=== PATIENT | female | born 1940 | race Caucasian/White ===

== ENCOUNTER 2016-04-19 16:43 | Emergency (ER) | payer MEDICARE, BC ==
[~2016-04-19] VITALS: Ht 165.1 cm; Wt 59.9 kg
[~2016-04-19 16:43] MED LIST: ACET-789 PO; ALBU8.5H2 IH; ALLEVE; ALN70T; ARIP2TAB10 PO; ASP81CT PO; ASPI-587 PO; C250T; CALC-879 PO; CALC250T2 PO; CITA20TA4 PO; CITRACAL; E400C; ESCT10T; FISH OIL 1,2001 EAC1; FOLI0.8T PO; GLIP10TA13 PO; LIRA0.6P SQ; MULT-608 PO; MULT1TAB63; OMEG1CAP51 PO; OMG1KC; OXYB10TA PO; RPGL2T; TOLT2CAP; VITAMIN C
[2016-04-19] MEDS ORDERED: MECLIZINE 25 MG (ANTIVERT) TAB PO ONE (17:30)
[2016-04-19 17:43] LABS: BILIRUBIN,URINE NEGATIVE (NEGATIVE); KETONES,URINE NEGATIVE (NEGATIVE); LEUKOCYTE ESTERASE ,URINE 1+ (NEGATIVE); NITRITE,URINE NEGATIVE (NEGATIVE); PH,URINE 8 (5-9); PROTEIN,URINE 2+ (NEGATIVE); UROBILINOGEN,URINE NORMAL (NORMAL)
[2016-04-19 17:45] LABS: BASOPHILS % (AUTO) 1 % (0-10); EOSINOPHILS # (AUTO) 0.1 10^3/uL (0.0-0.3); EOSINOPHILS % (AUTO) 2 % (0-10); LYMPHOCYTES # (AUTO) 2.3 X 10^3 (1.0-4.0); LYMPHOCYTES % (AUTO) 29 % (12-44); MEAN CORPUSCULAR HEMOGLOBIN 32 PG (25-34); MEAN CORPUSCULAR HGB CONC 35 G/DL (32-36); MEAN CORPUSCULAR VOLUME 93 FL (80-99); MEAN PLATELET VOLUME 10.7 FL (7.4-10.4); MONOCYTES # (AUTO) 0.7 X 10^3 (0.0-1.0); MONOCYTES % (AUTO) 9 % (0-12); NEUTROPHILS # (AUTO) 4.9 X 10^3 (1.8-7.8); NEUTROPHILS % (AUTO) 61 % (42-75); PLATELET COUNT 285 10^3/uL (130-400); RED BLOOD COUNT 3.85 10^6/uL (4.35-5.85); RED CELL DISTRIBUTION WIDTH 12.6 % (10.0-14.5); WHITE BLOOD COUNT 8.1 10^3/uL (4.3-11.0)
[2016-04-19 17:53] LABS: WBC,URINE 0-2 /HPF
[2016-04-19 18:00] LABS: ALBUMIN 4.2 G/DL (3.2-4.5); BILIRUBIN,TOTAL 0.3 MG/DL (0.1-1.0); CREATININE SERUM 1.15 MG/DL (0.60-1.30); TOTAL PROTEIN 6.6 G/DL (6.4-8.2)
[2016-04-19] MEDS ORDERED: NS IV 1000 ML 1,000 ML IV SCH (18:00)
--- NOTE | 2016-04-19 18:03 | ED General ---
General Chief Complaint: Dizziness/Syncope Stated Complaint: DIZZINESS/VOMITING Nursing Triage Note: PT REPORTS DIZZINESS WHEN SHE AWAKENED THIS AM ACCOMPANIED BY 3 EPISODES OF VOMITING. SHE STATES DIZZINESS IS WORSE WITH MOVEMENT. Nursing Sepsis Screen: No Definite Risk Source of Information: Patient Exam Limitations: No Limitations History of Present Illness Time Seen by Provider: 17:59 Initial Comments The patient is a 75-year-old white female who reports that on arising this morning she noted considerable dizziness which she describes as a spinning sensation. This seemed to be minimum if she held her head in midline and straight forward. Turning the head aggravated this. There was enough difficulty that she has vomited 3 times today. She reports that she is attempted to keep her fluid intake.. There has been no fever or chills. There is no previous history of vertigo. She does not report tinnitus. She has had multiple problems with vascular disease in the past. Timing/Duration: 12 Hours Allergies and Home Medications Allergies Coded Allergies: Sulfa (Sulfonamide Antibiotics) (Unverified Allergy, Unknown, FEET AND ANKLE SWELLING, 09/13/14) linagliptin (Unverified Allergy, Unknown, RASH, 09/13/14) metformin (Unverified Allergy, Unknown, 09/13/14) saxagliptin (Unverified Allergy, Unknown, FEET AND ANKLE SWELLED, 09/13/14) Home Medications Acetaminophen with Codeine 1 Each Tablet #20 1 EACH PO Q4H PRN PRN PAIN Prescribed by: JANETTE LACY on 11/06/14 0845 Aripiprazole 2 Mg Tablet 1 MG PO DAILY (Reported) TAKE 1/2 OF (2MG) TAB Aspirin 81 Mg Tablet.dr 81 MG PO DAILY (Reported) Calcium Cit/Mag/D3/Zn/Medical Office Technologist/Jarrell 1 Each Tablet 630 MG PO DAILY (Reported) Citalopram Hydrobromide 20 Mg Tablet 20 MG PO DAILY (Reported) Folic Acid 0.8 Mg Tablet 0.8 MG PO DAILY (Reported) Glipizide 10 Mg Tablet 10 MG PO BID (Reported) Liraglutide 0.6 Mg/0.1 Ml Pen.injctr 0.6 MG SQ DAILY (Reported) Multivitamins 1 Tab Tablet 1 TAB PO DAILY (Reported) [place]-3 Fatty Acids/Fish Oil 1 Each Capsule 2,000 MG PO BID (Reported) TAKE 2 (1000MG) TABS Oxybutynin Chloride 10 Mg Tab.osm.24 10 MG PO DAILY (Reported) Constitutional: see HPI EENTM: no symptoms reported see HPI Respiratory: no symptoms reported Cardiovascular: no symptoms reported Gastrointestinal: no symptoms reported Genitourinary: no symptoms reported Musculoskeletal: no symptoms reported Skin: no symptoms reported Psychiatric/Neurological: No Symptoms Reported Hematologic/Lymphatic: No Symptoms Reported Immunological/Allergic: no symptoms reported Past Ksqyxtm-Adnuoe-Gejlci Hx Patient Social History Alcohol Use: Denies Use Recreational Drug Use: No Smoking Status: Current Everyday Smoker Type Used: Cigarettes, Electronic/Vapor Recent Foreign Travel: No Contact w/Someone Who Travel: No Recent Infectious Disease Expo: No Recent Hopitalizations: No Physical Abuse Screen: No Sexual Abuse: No Immunizations Up To Date Date of Pneumonia Vaccine: Mar 23, 2006 Surgeries HX Surgeries: Yes (STENT IN BLADDER AND REMOVED, R CAROTID ENDARTERECTOMY, TRIGGER FINGER X3, ) Respiratory Hx Respiratory Disorders: Yes Respiratory Disorders: COPD Cardiovascular Hx Cardiac Disorders: No Neurological Hx Neurological Disorders: No Reproductive System Hx Reproductive Disorders: No Sexually Transmitted Disease: No Genitourinary Hx 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) Gastrointestinal Hx Gastrointestinal Disorders: No Musculoskeletal Hx Musculoskeletal Disorders: Yes (HIPS,KNEES AND LOWER BACK GIVES TROUBLE) Musculoskeletal Disorders: Arthritis Endocrine Hx Endocrine Disorders: Yes Endocrine Disorders: Diabetes, Non-Insulin dep HEENT HX ENT Disorders: Yes Loss of Vision: Bilateral Hearing Impairment: Hard of Hearing Cancer Hx Cancer: No Psychosocial Hx Psychiatric Problems: Yes Behavioral Health Disorders: Depression Integumentary HX Skin/Integumentary Disorder: No Blood Transfusions Hx Blood Disorders: No Physical Exam Vital Signs Vital Sign - Last 12Hours 04/19/16 17:25 Temp 97.1 Pulse 71 Resp 16 B/P 163/79 Pulse Ox 97 O2 Delivery Room Air Capillary Refill : Less Than 3 Seconds General Appearance: Mild Distress Eyes: Bilateral Eye Normal Inspection HEENT: Normal ENT Inspection Neck: Full Range of Motion Normal Inspection Non Tender Supple Carotid Bruit Cardiovascular: Regular Rate, Rhythm No Edema No Gallop No JVD No Murmur Normal Peripheral Pulses Gastrointestinal: Normal Bowel Sounds No Organomegaly No Pulsatile Mass Non Tender Soft Back: Normal Inspection No CVA Tenderness No Vertebral Tenderness Extremity: Normal Capillary Refill Normal Inspection Normal Range of Motion Non Tender No Calf Tenderness No Pedal Edema Neurologic/Psychiatric: Alert Oriented x3 No Motor/Sensory Deficits Normal Mood/Affect Skin: Normal Color Warm/Dry Lymphatic: No Adenopathy Progress/Results/Core Measures Results/Orders Lab Results Laboratory Tests Test 04/19/16 17:33 Range/Units Alanine Aminotransferase (ALT/SGPT) 51 0-55 U/L Albumin 4.2 3.2-4.5 G/DL Alkaline Phosphatase 79 40-136 U/L Anion Gap 11 5-14 MMOL/L Aspartate Amino Transf (AST/SGOT) 31 5-34 U/L BUN/Creatinine Ratio 15 Basophils # (Auto) 0.0 0.0-0.1 10^3/uL Basophils (%) (Auto) 1 0-10 % Blood Urea Nitrogen 17 7-18 MG/DL Calcium Level 10.0 8.5-10.1 MG/DL Carbon Dioxide Level 25 21-32 MMOL/L Chloride Level 105 98-107 MMOL/L Creatinine 1.15 0.60-1.30 MG/DL Eosinophils # (Auto) 0.1 0.0-0.3 10^3/uL Eosinophils (%) (Auto) 2 0-10 % Estimat Glomerular Filtration Rate 46 Glucose Level 203 H 70-105 MG/DL Hematocrit 36 35-52 % Hemoglobin 12.3 11.5-16.0 G/DL Lymphocytes # (Auto) 2.3 1.0-4.0 X 10^3 Lymphocytes (%) (Auto) 29 12-44 % Mean Corpuscular Hemoglobin 32 25-34 PG Mean Corpuscular Hemoglobin Concent 35 32-36 G/DL Mean Corpuscular Volume 93 80-99 FL Mean Platelet Volume 10.7 H 7.4-10.4 FL Monocytes # (Auto) 0.7 0.0-1.0 X 10^3 Monocytes (%) (Auto) 9 0-12 % Neutrophils # (Auto) 4.9 1.8-7.8 X 10^3 Neutrophils (%) (Auto) 61 42-75 % Platelet Count 285 130-400 10^3/uL Potassium Level 4.0 3.6-5.0 MMOL/L Red Blood Count 3.85 L 4.35-5.85 10^6/uL Red Cell Distribution Width 12.6 10.0-14.5 % Sodium Level 141 135-145 MMOL/L Total Bilirubin 0.3 0.1-1.0 MG/DL Total Protein 6.6 6.4-8.2 G/DL Urine Bacteria TRACE /HPF Urine Bilirubin NEGATIVE NEGATIVE Urine Casts NONE /LPF Urine Clarity CLEAR Urine Color YELLOW Urine Crystals NONE /LPF Urine Culture Indicated NO Urine Glucose (UA) 3+ H NEGATIVE Urine Ketones NEGATIVE NEGATIVE Urine Leukocyte Esterase 1+ H NEGATIVE Urine Mucus NEGATIVE /LPF Urine Nitrite NEGATIVE NEGATIVE Urine Protein 2+ H NEGATIVE Urine RBC NONE /HPF Urine RBC (Auto) NEGATIVE NEGATIVE Urine Specific [place] 1.015 L 1.016-1.022 Urine Squamous Epithelial Cells 5-10 /HPF Urine Urobilinogen NORMAL NORMAL MG/DL Urine WBC 0-2 /HPF Urine pH 8 5-9 White Blood Count 8.1 4.3-11.0 10^3/uL My Orders Orders-PRESTON DELEON MD Cbc With Automated Diff (04/19/16 17:23) Comprehensive Metabolic Panel (04/19/16 17:23) Ua Culture If Indicated (04/19/16 17:23) Meclizine Tablet (Antivert Tablet) (04/19/16 17:30) Ns Iv 1000 Ml (Sodium Chloride 0.9%) (04/19/16 18:00) Medications Given in ED Current Medications Medications Dose Ordered Sig/Leeroy Route Start Time Stop Time Status Last Admin Dose Admin Meclizine HCl 25 mg ONCE ONCE PO 04/19/16 17:30 04/19/16 17:31 DC 04/19/16 17:39 25 MG Vital Signs/I&O Vital Sign - Last 12Hours 04/19/16 17:25 Temp 97.1 Pulse 71 Resp 16 B/P 163/79 Pulse Ox 97 O2 Delivery Room Air Blood Pressure Mean: 107 Departure Impression Impression: Primary Impression: vertigo Disposition: 01 HOME, SELF-CARE Condition: Stable/Unchanged Departure-Patient Inst. Referrals: MARIVEL DANGELO MD (PCP/Family) Primary Care Physician Patient Instructions: Vertigo (a Type of Dizziness) (DC) Add. Discharge Instructions: All discharge instructions reviewed with patient and/or family. Voiced understanding. Take meclizine 4 times daily. Lots of liquids Try to avoid sudden or sharp changes in head position Scripts Meclizine HCl 25 Mg [id number] Mg PO 4 times a day #30 TAB Prov:PRESTON DELEON MD 04/19/16 PRESTON DELEON MD Apr 19, 2016 18:03
[2016-04-19] MEDS ORDERED: MECL-106 PO (18:17)
[2016-04-19 18:50] VITALS: BP 163/79
[2016-04-19] MEDS ORDERED: SCOPOLAMINE 1.5 MG (TRANSDERM-SCOP) PATCH TD ONE (19:00)
== END 2016-04-19 18:50 | disposition home or self-care (01) ==
LOC: EDUNIT# 16:43 → ER 16:45
DX: R42 Dizziness and giddiness (principal); R11.10 Vomiting, unspecified; E11.9 Type 2 diabetes mellitus without complications; J44.9 Chronic obstructive pulmonary disease, unspecified; F17.210 Nicotine dependence, cigarettes, uncomplicated; Z79.82 Long term (current) use of aspirin; Z79.84 Long term (current) use of oral hypoglycemic drugs; Z79.899 Other long term (current) drug therapy
CPT/HCPCS: 36415; 80053; 81000; 85025; 96360

== ENCOUNTER → 2017-05-13 | Outpatient (CLI) | payer MEDICARE, BC ==
[~2017-05-13] MED LIST changes: +MECL-106 PO
--- NOTE | 2017-05-13 14:12 | Diagnostic Imaging Report ---
INDICATION: Preoperative evaluation. History of peripheral vascular disease. COMPARISON: CT chest dated 05/19/2008. FINDINGS: Frontal and lateral radiographic views of the chest were obtained and show normal cardiac silhouette and pulmonary vasculature. There is calcified aortic atherosclerosis. There is bilateral pleural apical thickening. There is a more prominent nodular opacity within the lateral right apex measuring approximately 8 mm. There is no focal consolidation, large effusion, or pneumothorax. Indwelling thoracic spine neurostimulator is noted. Bony structures show no gross acute abnormalities. IMPRESSION: 1. No evidence of failure or focal infiltrate. 2. Biapical pleural thickening with more focal nodular opacity on the right. An underlying pulmonary nodule cannot be excluded. Correlation with CT chest is recommended. Dictated by: Dictated on workstation # [id number]
[2017-05-13 14:25] LABS: HEMOGLOBIN 13.1 G/DL (11.5-16.0); MEAN PLATELET VOLUME 10.5 FL (7.4-10.4); RED BLOOD COUNT 4.07 10^6/uL (4.35-5.85); RED CELL DISTRIBUTION WIDTH 13.2 % (10.0-14.5); WHITE BLOOD COUNT 9.4 10^3/uL (4.3-11.0)
[2017-05-13 14:31] LABS: BILIRUBIN,URINE NEGATIVE (NEGATIVE); CLARITY,URINE CLEAR; COLOR,URINE YELLOW; GLUCOSE, URINE (UA) NEGATIVE (NEGATIVE); KETONES,URINE NEGATIVE (NEGATIVE); LEUKOCYTE ESTERASE ,URINE 1+ (NEGATIVE); NITRITE,URINE NEGATIVE (NEGATIVE); PH,URINE 7 (5-9); PROTEIN,URINE 2+ (NEGATIVE); UROBILINOGEN,URINE NORMAL (NORMAL)
[2017-05-13 14:39] LABS: BACTERIA,URINE FEW /HPF; SQUAMOUS EPITHELIAL CELL,UR 25-50 /HPF
[2017-05-13 14:41] LABS: ALBUMIN 4.3 GM/DL (3.2-4.5); BILIRUBIN,TOTAL 0.4 MG/DL (0.1-1.0); CALCIUM 10.4 MG/DL (8.5-10.1); CREATININE SERUM 1.05 MG/DL (0.60-1.30); POTASSIUM 3.9 MMOL/L (3.6-5.0); TOTAL PROTEIN 7.3 GM/DL (6.4-8.2)
== END ==
LOC: CARD 13:34
PROVIDERS: ATTEND Thoracic Surgery (Cardiothoracic Vascular Surgery)
DX: Z01.810 Encounter for preprocedural cardiovascular examination (principal); Z01.811 Encounter for preprocedural respiratory examination; Z01.812 Encounter for preprocedural laboratory examination; I70.211 Atherosclerosis of native arteries of extremities with intermittent claudication, right leg; R82.99 Other abnormal findings in urine
CPT/HCPCS: 36415; 71046; 80053; 81000; 85027; 87088; 93005

== ENCOUNTER → 2017-05-20 | Outpatient (CLI) | payer MEDICARE, BC ==
--- NOTE | 2017-05-20 13:01 | Diagnostic Imaging Report ---
PROCEDURE: CT chest without contrast. TECHNIQUE: Multiple contiguous axial images were obtained through the chest without the use of intravenous contrast. INDICATION: Abnormal chest x-ray. Pulmonary nodule. FINDINGS: There is bilateral apical scarring. No mass is evident. The remainder of the lungs are clear. There is no effusion or pneumothorax. There is no mediastinal mass or adenopathy. There is scoliosis with no acute bony abnormality. There is cholelithiasis. IMPRESSION: 1. There is bilateral apical scarring with no suspicious mass evident. 2. There is cholelithiasis. Dictated by: Dictated on workstation # [id number]
== END ==
LOC: RAD 12:30
PROVIDERS: ATTEND Nurse Practitioner
DX: J98.4 Other disorders of lung (principal); K80.20 Calculus of gallbladder without cholecystitis without obstruction
CPT/HCPCS: 71250

== ENCOUNTER → 2017-06-03 | Outpatient (CLI) | payer MEDICARE, BC ==
[~2017-06-03] VITALS: Ht 165.1 cm; Wt 54.4 kg
[~2017-06-03] MED LIST changes: +CATHETER FLUSH 10 ML SYR IV PRN; +REGADENOSON 0.4 MG/5 ML SYR (LEXISCAN) IV ONE
[2017-06-03 10:19] VITALS: BP 104/41
--- NOTE | 2017-06-03 17:43 | STRESS TEST ---
DATE OF SERVICE: LEXISCAN MYOVIEW STRESS TEST REPORT REFERRING PHYSICIANS: 1. George Martin MD. 2. Tommie Wilson MD. DESCRIPTION OF PROCEDURE: Baseline heart rate is 62. Baseline blood pressure 121/43. Baseline EKG is sinus rhythm with a right bundle-branch block, nonspecific T-wave abnormality. In summary, the patient was injected with 10.14 mCi of technetium-99 Myoview and the resting images were obtained. Then, the patient received 0.4 mg of Lexiscan followed by 30.3 mCi of technetium-99 Myoview. Throughout the test, there were no EKG changes. The resting and stress images were reviewed and compared in the short axis, horizontal long axis, and vertical long axis views. Review of the images showed small left ventricle with good radiotracer uptake, no significant ischemia or infarction was seen. SSS is 1, SDS 1, TID value 0.99. On the gated images, the left ventricle contractility is normal with calculated ejection fraction of 78%. CONCLUSION: 1. The patient tolerated Lexiscan well. 2. No ischemia or infarction on SPECT images. 3. Small left ventricular size with good contractility, calculated ejection fraction of 78%. 4. Overall, there is no contraindication by cardiology to proceed with the planned procedure. Job ID: [id number] DocumentID: [id number] Dictated Date: 06/03/2017 14:08:26 [employer] Goods Drilling Machine Operator Date: 06/03/2017 17:42:45 Dictated By: SURINDER CRAWFORD MD
== END ==
LOC: CARD 07:16
PROVIDERS: ATTEND Internal Medicine Cardiovascular Disease
DX: E78.2 Mixed hyperlipidemia (principal); I73.9 Peripheral vascular disease, unspecified; I34.0 Nonrheumatic mitral (valve) insufficiency; E11.9 Type 2 diabetes mellitus without complications; M51.36 Other intervertebral disc degeneration, lumbar region; G89.4 Chronic pain syndrome
CPT/HCPCS: 78452; 93017; 93306

== ENCOUNTER → 2017-06-04 | Outpatient (CLI) | payer MEDICARE, BC ==
[~2017-06-04] MED LIST changes: -CATHETER FLUSH 10 ML SYR IV PRN; -REGADENOSON 0.4 MG/5 ML SYR (LEXISCAN) IV ONE
[2017-06-04 08:21] LABS: CHOLESTEROL 276 MG/DL (< 200); HDL CHOLESTEROL 74 MG/DL (40-60); TRIGLYCERIDES 154 MG/DL (<150); VLDL CHOLESTEROL 31 MG/DL (5-40)
== END ==
LOC: LAB 07:49
PROVIDERS: ATTEND Internal Medicine Cardiovascular Disease
DX: E11.9 Type 2 diabetes mellitus without complications (principal); E78.2 Mixed hyperlipidemia; I73.9 Peripheral vascular disease, unspecified; M51.36 Other intervertebral disc degeneration, lumbar region; G89.4 Chronic pain syndrome
CPT/HCPCS: 36415; 80061

== ENCOUNTER → 2017-07-08 | Outpatient (CLI) | payer MEDICARE, BC ==
[2017-07-08 13:34] LABS: BILIRUBIN,URINE NEGATIVE (NEGATIVE); CLARITY,URINE CLEAR; COLOR,URINE YELLOW; GLUCOSE, URINE (UA) 4+ (NEGATIVE); KETONES,URINE 3+ (NEGATIVE); LEUKOCYTE ESTERASE ,URINE 1+ (NEGATIVE); NITRITE,URINE NEGATIVE (NEGATIVE); PH,URINE 6 (5-9); PROTEIN,URINE 3+ (NEGATIVE); UROBILINOGEN,URINE NORMAL (NORMAL)
[2017-07-08 13:49] LABS: BACTERIA,URINE FEW /HPF; RBC,URINE RARE /HPF
== END ==
LOC: LAB 13:08
PROVIDERS: ATTEND Thoracic Surgery (Cardiothoracic Vascular Surgery)
DX: N39.0 Urinary tract infection, site not specified (principal)
CPT/HCPCS: 81000

== ENCOUNTER → 2017-10-08 | Outpatient (CLI) | payer MEDICARE, BC ==
--- NOTE | 2017-10-08 11:38 | Diagnostic Imaging Report ---
TIME OF EXAM: 10/08/2017 9:14 AM CLINICAL HISTORY: 76-year-old female presents for bone density screening TECHNIQUE: DEXA scan performed of the lumbar spine and bilateral hips COMPARISON: 05/13/2006 FINDINGS: Lumbar Spine: The bone mineral density of the lumbar spine from L2-L4 measures 1.379 g per square centimeter, with a T score of 1.5 and a Z score of 3.7. There are degenerative changes in the lumbar spine which may falsely elevate the bone density measurements. There has been a 22.7% increase in measured bone density since the prior exam. Right hip: The total right hip bone mineral density measures 0.783 g per square centimeter, with a T score of -1.8 and a Z score of 0.4. The right femoral neck bone mineral density measures 0.731 g per square centimeter, with a T score of -2.2 and Z score of 0.1. Left hip: The total left hip bone mineral density measures 0.831 g per square centimeter, with a T score of -1.4 and a Z score of 0.8. The left femoral neck bone mineral density measures 0.751 g per square centimeter, with a T score of -2.1 and Z score 0.3. The total mean bone mineral density of the bilateral hips measures 0.807 g per square centimeter, with a T score of -1.6 and a Z score of 0.6, and there has been a 3.1% decrease in the mean bone density since the prior study in 2006. The T-score is defined as the Bone Mineral Density (BMD) of the patient compared with the mean peak BMD of a young adult population by standard deviation (SD). Normal < 1 SD below mean peak value Osteopenia > 1 SD but < 2.5 SD below mean peak value Osteoporosis > 2.5 SD below mean peak value Using the FRAX risk assessment tool and using the given clinical information, the estimated 10 year risk of a major osteoporotic fracture is 14%, and risk of a hip fracture is 4.5%. IMPRESSION: 1. Osteopenia. 2. Mild decrease in bone density of the bilateral hips since 2006. Dictated by: Dictated on workstation # [id number]
== END ==
LOC: RAD 08:48
PROVIDERS: ATTEND Family Medicine Geriatric Medicine
DX: M81.0 Age-related osteoporosis without current pathological fracture (principal); Z13.820 Encounter for screening for osteoporosis; M85.88 Other specified disorders of bone density and structure, other site
CPT/HCPCS: 77080

== ENCOUNTER 2017-12-28 09:58 | Emergency (ER) | payer MEDICARE, BC ==
[~2017-12-28] VITALS: Ht 165.1 cm; Wt 52.6 kg
--- NOTE | 2017-12-28 10:21 | ED Respiratory ---
General Chief Complaint: Cough/Cold/Flu Symptoms Stated Complaint: COUGH;R SIDE BACK PAIN Source: patient Exam Limitations: no limitations History of Present Illness Date Seen by Provider: Dec 28, 2017 Time Seen by Provider: 10:05 Initial Comments The patient presents to the ER by private conveyance with chief complaint that for the past week she has felt low with a productive cough with yellow sputum, body aches chills but no documented fever. For the past several weeks she's been visiting her friend at a rehabilitation home where there rehabbing from a stroke and she is afraid she is constant thing. She went to urgent care 3 or 4 days ago and they did not do a flu swab but they did diagnose her with bronchitis and put her on azithromycin and Keflex. She is on day 4 of azithromycin. She says she is not feeling any better is getting weaker and still having lots of body aches and feeling miserable. Eating and drinking less. She has some pain on her right side thoracic back it's worse with deep inspiration or coughing. This pain started after her coughing fits. She has a history of chronic back pain and a spinal stimulator. She's also has a nonhealing right ankle fracture. She has diabetes not using insulin. Allergies and Home Medications Allergies Coded Allergies: Sulfa (Sulfonamide Antibiotics) (Unverified Allergy, Unknown, FEET AND ANKLE SWELLING, 09/13/14) linagliptin (Unverified Allergy, Unknown, RASH, 09/13/14) metformin (Unverified Allergy, Unknown, 09/13/14) saxagliptin (Unverified Allergy, Unknown, FEET AND ANKLE SWELLED, 09/13/14) Home Medications Acetaminophen with Codeine 1 Each Tablet, 1 EACH PO Q4H PRN for PAIN Prescribed by: JANETTE LACY on 11/06/14 0845 Aripiprazole 2 Mg Tablet, 1 MG PO DAILY, (Reported) TAKE 1/2 OF (2MG) TAB Aspirin 81 Mg Tablet.dr, 81 MG PO DAILY, (Reported) Calcium Cit/Mag/D3/Zn/Welder Boilermaker/Jarrell 1 Each Tablet, 630 MG PO DAILY, (Reported) Citalopram Hydrobromide 20 Mg Tablet, 20 MG PO DAILY, (Reported) Folic Acid 0.8 Mg Tablet, 0.8 MG PO DAILY, (Reported) Glipizide 10 Mg Tablet, 10 MG PO BID, (Reported) Liraglutide 0.6 Mg/0.1 Ml Pen.injctr, 0.6 MG SQ DAILY, (Reported) Meclizine HCl 25 Mg Tablet, 25 MG PO 4 times a day Prescribed by: PRESTON DELEON on 04/19/161816 Multivitamins 1 Tab Tablet, 1 TAB PO DAILY, (Reported) Rutherford-3 Fatty Acids/Fish Oil 1 Each Capsule, 2,000 MG PO BID, (Reported) TAKE 2 (1000MG) TABS Oxybutynin Chloride 10 Mg Tab.osm.24, 10 MG PO DAILY, (Reported) Patient Home Medication List Home Medication List Reviewed: Yes Review of Systems Review of Systems Constitutional: chills; No fever; malaise, weakness EENTM: No ear discharge, No ear pain Respiratory: cough, phlegm; No short of breath, No wheezing Cardiovascular: No chest pain, No palpitations Gastrointestinal: No abdominal pain, No constipation, No diarrhea, No nausea, No vomiting Genitourinary: No discharge, No dysuria Musculoskeletal: see HPI, back pain; No joint pain Skin: No pruritus, No rash Past Vkwpfwr-Yqrazi-Ndsrmp Hx Patient Social History Alcohol Use: Denies Use Recreational Drug Use: No Smoking Status: Current Everyday Smoker Type Used: Cigarettes, Electronic/Vapor Recent Hopitalizations: No Immunizations Up To Date Date of Pneumonia Vaccine: Mar 23, 2006 Past Medical History COPD Reproductive Disorders: No Sexually Transmitted Disease: No Arthritis Diabetes, Non-Insulin dep Loss of Vision: Bilateral Hearing Impairment: Hard of Hearing Depression Physical Exam Vital Signs - First Documented 12/28/17 10:05 Temp 99.3 Pulse 83 Resp 22 B/P (MAP) 155/56 (89) Pulse Ox 96 O2 Delivery Room Air Capillary Refill : Height: 5'5.00" Weight: 120lbs. 0.0oz. [id number]; 20.0 BMI Method:Stated General Appearance: WD/WN, mild distress Eyes: Bilateral Eye Normal Inspection, Bilateral Eye PERRL, Bilateral Eye EOMI HEENT: PERRL/EOMI, TMs normal, pharynx normal Neck: non-tender, supple, normal inspection Respiratory: chest non-tender, no respiratory distress, no accessory muscle use , crackles (basilar) Cardiovascular: normal peripheral pulses, regular rate, rhythm, no edema Gastrointestinal: normal bowel sounds, non tender, soft Neurologic/Psychiatric: alert, normal mood/affect, oriented x 3 Skin: normal color, warm/dry Progress/Results/Core Measures Suspected Sepsis SIRS Temperature: Pulse: Respiratory Rate: Laboratory Tests 12/28/17 10:31: White Blood Count 14.0H Blood Pressure / Mean: Laboratory Tests 12/28/17 10:31: Creatinine 1.29, Platelet Count 316, Total Bilirubin 0.7 Results/Orders Lab Results Laboratory Tests Test 12/28/17 10:31 Range/Units White Blood Count 14.0 H 4.3-11.0 10^3/uL Red Blood Count 3.03 L 4.35-5.85 10^6/uL Hemoglobin 9.7 L 11.5-16.0 G/DL Hematocrit 29 L 35-52 % Mean Corpuscular Volume 94 80-99 FL Mean Corpuscular Hemoglobin 32 25-34 PG Mean Corpuscular Hemoglobin Concent 34 32-36 G/DL Red Cell Distribution Width 13.7 10.0-14.5 % Platelet Count 316 130-400 10^3/uL Mean Platelet Volume 11.3 H 7.4-10.4 FL Neutrophils (%) (Auto) 79 H 42-75 % Lymphocytes (%) (Auto) 9 L 12-44 % Monocytes (%) (Auto) 10 0-12 % Eosinophils (%) (Auto) 1 0-10 % Basophils (%) (Auto) 0 0-10 % Neutrophils # (Auto) 11.1 H 1.8-7.8 X 10^3 Lymphocytes # (Auto) 1.3 1.0-4.0 X 10^3 Monocytes # (Auto) 1.4 H 0.0-1.0 X 10^3 Eosinophils # (Auto) 0.2 0.0-0.3 10^3/uL Basophils # (Auto) 0.1 0.0-0.1 10^3/uL Neutrophils % (Manual) 77 % Lymphocytes % (Manual) 11 % Monocytes % (Manual) 11 % Eosinophils % (Manual) 1 % Basophils % (Manual) 0 % Band Neutrophils 0 % Blood Morphology Comment NORMAL Sodium Level 138 135-145 MMOL/L Potassium Level 4.0 3.6-5.0 MMOL/L Chloride Level 102 98-107 MMOL/L Carbon Dioxide Level 22 21-32 MMOL/L Anion Gap 14 5-14 MMOL/L Blood Urea Nitrogen 23 H 7-18 MG/DL Creatinine 1.29 0.60-1.30 MG/DL Estimat Glomerular Filtration Rate 40 BUN/Creatinine Ratio 18 Glucose Level 356 H 70-105 MG/DL Calcium Level 10.4 H 8.5-10.1 MG/DL Corrected Calcium 10.6 H 8.5-10.1 MG/DL Total Bilirubin 0.7 0.1-1.0 MG/DL Aspartate Amino Transf (AST/SGOT) 13 5-34 U/L Alanine Aminotransferase (ALT/SGPT) 18 0-55 U/L Alkaline Phosphatase 98 40-136 U/L Total Protein 7.4 6.4-8.2 GM/DL Albumin 3.7 3.2-4.5 GM/DL Micro Results Microbiology 12/28/17 Influenza Types A,B Antigen (DEIRDRE) - Final, Complete My Orders Orders - HIPOLITO COSTA Cbc With Automated Diff (12/28/17 10:13) Comprehensive Metabolic Panel (12/28/17 10:13) Influenza A And B Antigens (12/28/17 10:13) Chest Pa/Lat (2 View) (12/28/17 10:13) Saline Lock/Iv-Start (12/28/17 10:13) Thoracic Spine, 2 Views Only (12/28/17 10:24) Manual Differential (12/28/17 10:31) Ceftriaxone For Iv Use (Rocephin For I (12/28/17 11:45) Ns Iv 1000 Ml (Sodium Chloride 0.9%) (12/28/17 11:34) Medications Given in ED Current Medications Medications Dose Ordered Sig/Leeroy Route Start Time Stop Time Status Last Admin Dose Admin Ceftriaxone Sodium 1000 mg/ Sodium Chloride 50 ml @ 100 mls/hr ONCE ONCE IV 12/28/17 11:45 12/28/17 12:14 DC 12/28/17 11:56 100 MLS/HR Vital Signs/I&O 12/28/17 12/28/17 10:05 10:07 Temp 99.3 Pulse 83 Resp 22 B/P (MAP) 155/56 (89) Pulse Ox 96 O2 Delivery Room Air Room Air Capillary Refill : Progress Note #1: Time: 10:22 Progress Note The patient doesn't appear to be in any great distress although she says she is worn out and she thinks she has overdone herself so she may merit an observation stay. She's not requiring oxygen at this time. We'll check some labs and get a chest x-ray given her crackles. We'll also be curious given her pain in her thoracic spine if there is any chance she has a compression fracture or other pathologic fracture from the coughing. She has tenderness around T6 through T8 midline. Progress Note #2: Time: 11:32 Progress Note Patient has bilateral pneumonia with elevated white count and a curb 65 score of 2 points. We have offered her inpatient treatment and she would prefer to stay home. She is already on cephalexin 3 times a day and azithromycin so were discontinued give her a dose of Rocephin and a liter fluids to help out with her dehydration. She says she already has a follow-up appointment on , 3 days from now with her six sigma project manager in [place]. We have given her strict return precautions. Diagnostic Imaging Diagonstic Imaging: Xray Plain Films/CT/US/NM/MRI: chest (2v) Comments VIA [facility]. [place], [place] NAME: CRISTOBAL CANDELARIO [facility] REC#: [id number] PT STATUS: REG ER : 1940 PHYSICIAN: HIPOLITO COSTA MD ADMIT DATE: 12/28/17/ER Draft Date of Exam:12/28/17 CHEST PA/LAT (2 VIEW) INDICATION: Cough. EXAMINATION: PA and lateral views of the chest were obtained at 1109 hours. COMPARISON: 05/13/2017. FINDINGS: The heart and mediastinal silhouette are normal in appearance. There is mild central vascular prominence. There are new bibasilar infiltrates, suspicious for pneumonia. There is no pneumothorax or gross pleural fluid. A stimulator device over the thoracic canal is again noted. IMPRESSION: New bibasilar infiltrate, suspicious for pneumonia. Recommend followup to resolution to exclude an underlying lesion. Dictated on workstation # [id number] Dict: 12/28/17 1059 Trans: 12/28/17 1111 [id number] Interpreted by: ROGELIO ANDERSON MD Electronically signed by: Reviewed: Reviewed by Me Diagonstic Imaging: Xray Plain Films/CT/US/NM/MRI: other (T spine) Comments VIA [facility], [facility]. [place], [place] NAME: CRISTOBAL CANDELARIO [facility] REC#: [id number] PT STATUS: REG ER : 1940 PHYSICIAN: HIPOLITO COSTA MD ADMIT DATE: 12/28/17/ER Draft Date of Exam:12/28/17 THORACIC SPINE, 2 VIEWS ONLY PATIENT HISTORY: Back pain and right lower posterior shoulder pain. TECHNIQUE: 3 views of the thoracic spine COMPARISON: CT chest from 05/20/2017 FINDINGS: There is slight left convex curvature of the midthoracic spine. The spinal cord stimulator is in expected position at T8-9. This appears similar to the prior exam. Degenerative changes are partially seen in the lumbar spine. The thoracic spine vertebral body heights appear preserved. Marked degenerative changes are seen in the cervical spine. There are airspace opacities in the left lung base. IMPRESSION: 1. Mild degenerative changes in the thoracic spine with no acute fracture seen. 2. Airspace opacities in the left lower lobe. Dictated on workstation # [id number] Dict: 12/28/17 1104 Trans: 12/28/17 [facility] [place] [id number] Interpreted by: JEFFERY ALDANA MD Electronically signed by: Reviewed: Reviewed by Me Departure Impression Primary Impression: Pneumonia Qualified Codes: J18.1 - Lobar pneumonia, unspecified organism Disposition: 01 HOME, SELF-CARE Condition: Stable Departure-Patient Inst. Decision time for Depature: 12:49 Referrals: MARIVEL MARTIN MD (PCP/Family) Primary Care Physician Patient Instructions: Pneumonia, Adult (DC) Add. Discharge Instructions: Drink lots of fluids and use a humidifier as well as vapor rubs. Use Tylenol 1000 mg every 8 hours as needed for body aches. Return to the ER if you cannot tolerate medicines or you feel that you're getting worse. Keep your follow-up appointment with Dr. Martin this . All discharge instructions reviewed with patient and/or family. Voiced understanding. HIPOLITO COSTA Dec 28, 2017 10:21
[2017-12-28 10:42] LABS: BASOPHILS # (AUTO) 0.1 10^3/uL (0.0-0.1); BASOPHILS % (AUTO) 0 % (0-10); EOSINOPHILS # (AUTO) 0.2 10^3/uL (0.0-0.3); EOSINOPHILS % (AUTO) 1 % (0-10); HEMATOCRIT 29 % (35-52); HEMOGLOBIN 9.7 G/DL (11.5-16.0); LYMPHOCYTES # (AUTO) 1.3 X 10^3 (1.0-4.0); LYMPHOCYTES % (AUTO) 9 % (12-44); MEAN CORPUSCULAR HEMOGLOBIN 32 PG (25-34); MEAN CORPUSCULAR HGB CONC 34 G/DL (32-36); MEAN CORPUSCULAR VOLUME 94 FL (80-99); MEAN PLATELET VOLUME 11.3 FL (7.4-10.4); MONOCYTES # (AUTO) 1.4 X 10^3 (0.0-1.0); MONOCYTES % (AUTO) 10 % (0-12); NEUTROPHILS # (AUTO) 11.1 X 10^3 (1.8-7.8); NEUTROPHILS % (AUTO) 79 % (42-75); PLATELET COUNT 316 10^3/uL (130-400); RED BLOOD COUNT 3.03 10^6/uL (4.35-5.85); RED CELL DISTRIBUTION WIDTH 13.7 % (10.0-14.5)
[2017-12-28] MEDS ORDERED: AZIT500T5 PO (10:46)
[2017-12-28] MEDS ORDERED: CEPH500C PO (10:46)
[2017-12-28 11:04] LABS: ALBUMIN 3.7 GM/DL (3.2-4.5); BILIRUBIN,TOTAL 0.7 MG/DL (0.1-1.0); CALCIUM 10.4 MG/DL (8.5-10.1); CREATININE SERUM 1.29 MG/DL (0.60-1.30); TOTAL PROTEIN 7.4 GM/DL (6.4-8.2)
[2017-12-28 11:11] LABS: NEUTROPHILS % (MANUAL) 77 %
--- NOTE | 2017-12-28 11:11 | Diagnostic Imaging Report ---
INDICATION: Cough. EXAMINATION: PA and lateral views of the chest were obtained at 1109 hours. COMPARISON: 05/13/2017. FINDINGS: The heart and mediastinal silhouette are normal in appearance. There is mild central vascular prominence. There are new bibasilar infiltrates, suspicious for pneumonia. There is no pneumothorax or gross pleural fluid. A stimulator device over the thoracic canal is again noted. IMPRESSION: New bibasilar infiltrate, suspicious for pneumonia. Recommend followup to resolution to exclude an underlying lesion. Dictated by: Dictated on workstation # [id number]
[2017-12-28 11:12] LABS: BAND NEUTROPHILS 0 %; BASOPHILS % (MANUAL) 0 %; EOSINOPHILS % (MANUAL) 1 %; LYMPHOCYTES % (MANUAL) 11 %; MONOCYTES % (MANUAL) 11 %; RBC MORPH NORMAL
--- NOTE | 2017-12-28 11:12 | Diagnostic Imaging Report ---
PATIENT HISTORY: Back pain and right lower posterior shoulder pain. TECHNIQUE: 3 views of the thoracic spine COMPARISON: CT chest from 05/20/2017 FINDINGS: There is slight left convex curvature of the midthoracic spine. The spinal cord stimulator is in expected position at T8-9. This appears similar to the prior exam. Degenerative changes are partially seen in the lumbar spine. The thoracic spine vertebral body heights appear preserved. Marked degenerative changes are seen in the cervical spine. There are airspace opacities in the left lung base. IMPRESSION: 1. Mild degenerative changes in the thoracic spine with no acute fracture seen. 2. Airspace opacities in the left lower lobe. Dictated by: Dictated on workstation # [id number]
[2017-12-28] MEDS ORDERED: NS IV 1000 ML 1,000 ML IV SCH (11:34)
[2017-12-28] MEDS ORDERED: cefTRIAXone FOR IV USE 1,000 MG in NS (IVPB) 50 ML IV ONE (11:45)
[2017-12-28 13:08] VITALS: BP 155/56
== END 2017-12-28 13:08 | disposition home or self-care (01) ==
LOC: EDUNIT# 09:58 → ER 09:59
DX: J18.9 Pneumonia, unspecified organism (principal); M54.9 Dorsalgia, unspecified; E11.9 Type 2 diabetes mellitus without complications; J44.9 Chronic obstructive pulmonary disease, unspecified; F32.9 Major depressive disorder, single episode, unspecified; F17.210 Nicotine dependence, cigarettes, uncomplicated; Z88.2 Allergy status to sulfonamides; Z88.8 Allergy status to other drugs, medicaments and biological substances; Z79.82 Long term (current) use of aspirin; Z79.84 Long term (current) use of oral hypoglycemic drugs; Z96.9 Presence of functional implant, unspecified
CPT/HCPCS: 36415; 71046; 72070; 80053; 85007; 85027; 87804

== ENCOUNTER 2017-12-30 09:56 | Inpatient (IN) | payer MEDICARE, BC ==
[~2017-12-30] VITALS: Ht 165.1 cm; Wt 52.6 kg
[~2017-12-30 09:56] MED LIST changes: +AZIT500T5 PO; +CEPH500C PO
--- OUTSIDE RECORDS SUMMARY | 2017-12-30 10:04 | XMS REPORT | Continuity of Care Document ---
Author Author [facility] Organization [facility] Address Unknown Phone Unavailable Allergies Active Description Code Type Severity Reaction Onset Reported/Identified Relationship to Patient Clinical Status Yes NKANo Known Allergies NKA Miscellaneous Allergy Unknown N/A 10/02/2006 Yes linagliptin [id number] Drug Allergy Unknown RASH 09/13/2014 Yes metformin [id number] Drug Allergy Unknown N/A 09/13/2014 Yes saxagliptin [id number] Drug Allergy Unknown FEET AND ANKLE 09/13/2014 Yes Sulfa (Sulfonamide Antibiotics) [id number] Drug Allergy Unknown FEET AND ANKLE 09/13/2014 Medications There is no data. Problems Date Dx Coded Attending Type Code Diagnosis Diagnosed By 07/27/2009 Ot 845.00 07/27/2009 Ot 959.7 07/27/2009 Ot E000.8 07/27/2009 Ot E030 07/27/2009 Ot E849.4 07/27/2009 Ot E927.0 03/14/2014 GUTIERREZ FULLER MD Ot 724.2 03/14/2014 GUTIERREZ FULLER MD Ot V57.1 03/14/2014 JANETTE LACY MD Ot 721.0 03/14/2014 JANETET LACY MD Ot 722.11 03/15/2014 GUTIERREZ FULLER MD Ot 724.2 03/15/2014 GUTIERREZ FULLER MD Ot V57.1 03/15/2014 JANETTE LACY MD Ot 721.0 03/15/2014 JANETTE LACY MD Ot 722.11 03/15/2014 JANETTE LACY MD Ot 721.0 03/15/2014 JANETTE LACY MD Ot 722.11 03/20/2014 GUTIERREZ FULLER MD Ot 724.2 03/20/2014 GUTIERREZ FULLER MD Ot V57.1 03/28/2014 GUTIERREZ FULLER MD Ot 724.2 03/28/2014 ALINA DELEON, GUTIERREZ R Ot V57.1 03/28/2014 ALINA DELEON, GUTIERREZ R Ot 724.2 03/28/2014 ALINA DELEON, GUTIERREZ R Ot V57.1 03/31/2014 ALINA DELEON, GUTIERREZ R Ot 724.2 03/31/2014 ALINA DELEON, GUTIERREZ R Ot V57.1 03/31/2014 REGINO DELEON, JANETTE Paul Ot 721.0 03/31/2014 REGINO DELEON, JANETTE Paul Ot 722.11 04/07/2014 ALINA DELEON, GUTIERREZ R Ot 724.2 LUMBAGO 04/07/2014 ALINA DELEON, GUTIERREZ R Ot V57.1 PHYSICAL THERAPY NEC 04/20/2014 REGINO DELEON, JANETTE Paul Ot 721.0 04/20/2014 REGINO DELEON, JANETTE Paul Ot 722.11 09/13/2014 Ot 727.43 09/13/2014 Ot 722.52 09/13/2014 Ot 786.2 09/13/2014 Ot 793.19 09/13/2014 Ot V12.61 09/13/2014 JESSE DELEON, DARIA Paul Ot 786.2 09/13/2014 GAY DELEON, PRISCILA Hanosn Ot 786.50 09/13/2014 GAY DELEON, PRISCILA Hanson Ot 719.47 09/13/2014 REGINO DELEON, JANETTE Paul Ot 721.0 09/13/2014 REGINO DELEON, JANETTE Paul Ot 722.11 09/18/2014 Ot 727.43 09/18/2014 Ot 722.52 09/18/2014 Ot 786.2 09/18/2014 Ot 793.19 09/18/2014 Ot V12.61 09/18/2014 JESSE DELEON, DARIA Paul Ot 786.2 09/18/2014 GAY DELEON, PRISCILA Hanson Ot 786.50 09/18/2014 PRISCILA RASHID MD Ot 719.47 09/18/2014 REGINO DELEON, JANETTE Paul Ot 721.0 09/18/2014 REGINO DELEON, JANETTE Paul Ot 722.11 09/18/2014 LALITA DELEON, SEBASTIAN Paul Ot 250.00 DIAB ARNOLDO WO COMPL, TYPE II OR UNSPEC TY 09/18/2014 SEBASTIAN CELIS MD Ot 311 DEPRESSIVE DISORDER NEC 09/18/2014 SEBASTIAN CELIS MD Ot 338.4 CHRONIC PAIN SYNDROME 09/18/2014 SEBASTIAN CELIS MD Ot 496 CHR AIRWAY OBSTRUCT NEC 09/18/2014 SEBASTIAN CELIS MD Ot 722.52 LUMB/LUMBOSAC DISC DEGEN 09/18/2014 SEBASTIAN CELIS MD Ot V74.8 SCREEN-BACTERIAL DIS NEC 11/06/2014 JESSE DELEON, DARIA Paul Ot 786.2 11/06/2014 PRISCILA RASHID MD R Ot 786.50 11/06/2014 PRISCILA RASHID MD R Ot 719.47 11/06/2014 JANETTE LACY MD Ot 721.0 11/06/2014 JANETTE LACY MD Ot 722.11 11/06/2014 SEBASTIAN CELIS MD Ot 338.4 11/06/2014 SEBASTIAN CELIS MD Ot 722.52 11/06/2014 SEBASTIAN CELIS MD Ot V72.84 11/06/2014 JANETTE LACY MD Ot 724.00 11/06/2014 JANETTE LACY MD Ot V02.54 11/06/2014 JANETTE LACY MD Ot V72.83 11/06/2014 JANETTE LACY MD Ot V74.8 11/06/2014 JANETTE LACY MD Ot 250.00 DIAB ARNOLDO WO COMPL, TYPE II OR UNSPEC TY 11/06/2014 JANETTE LACY MD Ot 724.2 LUMBAGO 05/04/2015 PRISCILA RASHID MD R Ot K86.8 05/09/2015 PRISCILA RASHID MD Ot K86.8 05/25/2015 Ot 727.43 05/25/2015 Ot 722.52 05/25/2015 Ot 786.2 05/25/2015 Ot 793.19 05/25/2015 Ot V12.61 05/25/2015 JESSE DELEON, DARIA Paul Ot 786.2 05/25/2015 PRISCILA RASHID MD R Ot 786.50 05/25/2015 PRISCILA RASHID MD Ot 719.47 05/25/2015 JANETTE LACY MD Ot 721.0 05/25/2015 JANETTE LACY MD Ot 722.11 05/25/2015 SEBASTIAN CELIS MD Ot 338.4 05/25/2015 SEBASTIAN CELIS MD Ot 722.52 05/25/2015 SEBASTIAN CELIS MD Ot V72.84 05/25/2015 JANETTE LACY MD Ot 724.00 05/25/2015 JANETTE LACY MD Ot V02.54 05/25/2015 JANETTE LACY MD Ot V72.83 05/25/2015 JANETTE LACY MD Ot V74.8 05/25/2015 GAY DELEON, PRISCILA Hanson Ot K86.8 06/06/2015 MARIVEL DANGELO MD, Ot E11.9 06/06/2015 MARIVEL DANGELO MD, Ot G60.9 06/06/2015 MARIVEL DANGELO MD Ot I70.201 06/06/2015 MARIVEL DANGELO MD Ot R53.83 08/30/2015 JANETTE LACY MD Ot 250.00 DIAB ARNOLDO WO COMPL, TYPE II OR UNSPEC TY 08/30/2015 JANETTE LACY MD Ot 724.2 LUMBAGO 12/12/2015 MARIVEL DANGELO MD Ot E11.9 TYPE 2 DIABETES MELLITUS WITHOUT COMPLIC 12/12/2015 MAIRVEL DANGELO MD Ot G60.9 HEREDITARY AND IDIOPATHIC NEUROPATHY, UN 12/12/2015 MARIVEL DANGELO MD Ot I70.201 UNSP ATHSCL [place] [facility] 12/12/2015 MARIVEL DANGELO MD Ot R53.83 OTHER FATIGUE 04/19/2016 PRESTON DELEON MD Ot E11.9 TYPE 2 DIABETES MELLITUS WITHOUT COMPLIC 04/19/2016 PRESTON DELEON MD Ot F17.210 NICOTINE DEPENDENCE, CIGARETTES, UNCOMPL 04/19/2016 PRESTON DELEON MD Ot J44.9 CHRONIC OBSTRUCTIVE PULMONARY DISEASE, U 04/19/2016 PRESTON DELEON MD Ot R11.10 VOMITING, UNSPECIFIED 04/19/2016 PRESTON DELEON MD Ot R42 DIZZINESS AND GIDDINESS 04/19/2016 PRESTON DELEON MD Ot Z79.82 LINE UP EXAMINER (CURRENT) USE OF ASPIRIN 04/19/2016 PRESTON DELEON MD Ot Z79.84 FPC (CURRENT) USE OF ORAL HYPOGLYC 04/19/2016 PRESTON DELEON MD Ot Z79.899 OTHER FPC (CURRENT) DRUG THERAPY 04/19/2016 Ot 786.2 COUGH 04/19/2016 Ot 793.19 OTHER NONSPECIFIC ABNORMAL FINDING OF REGAN 04/19/2016 Ot V12.61 PERSONAL HISTORY, PNEUMONIA (RECURRENT) 04/19/2016 DARIA MOLINA MD Ot 786.2 COUGH 04/19/2016 PRISCILA RASHID MD Ot 786.50 CHEST PAIN NOS 04/19/2016 PRISCILA RASHID MD Ot 719.47 JOINT PAIN-ANKLE 04/19/2016 JANETTE LACY MD Ot 721.0 CERVICAL SPONDYLOSIS 04/19/2016 JANETTE LACY MD Ot 722.11 THORACIC DISC DISPLACMNT 04/19/2016 SEBASTIAN CELIS MD Ot 338.4 CHRONIC PAIN SYNDROME 04/19/2016 SEBASTIAN CELIS MD Ot 722.52 LUMB/LUMBOSAC DISC DEGEN 04/19/2016 SEBASTIAN CELIS MD Ot V72.84 EXAM PRE-OPERATIVE NOS 04/19/2016 JANETTE LACY MD Ot 724.00 SPINAL STENOSIS NOS 04/19/2016 JANETTE LACY MD Ot V02.54 CARRIER, SUSP BARR METHICILLIN RESISTN S 04/19/2016 JANETTE LACY MD Ot V72.83 EXAM PRE-OPERATIVE NEC 04/19/2016 JANETTE LACY MD Ot V74.8 SCREEN-BACTERIAL DIS NEC 04/19/2016 PRISCILA RASHID MD Ot K86.8 OTHER SPECIFIED DISEASES OF PANCREAS 04/19/2016 MARIVEL DANGELO MD Ot E11.9 TYPE 2 DIABETES MELLITUS WITHOUT COMPLIC 04/19/2016 MARIVEL DANGELO MD Ot G60.9 HEREDITARY AND IDIOPATHIC NEUROPATHY, UN 04/19/2016 MARIVEL DANGELO MD Ot I70.201 UNSP ATHSCL KAS[place] ARTERIES OF EXTREMITI 04/19/2016 MARIVEL DANGELO MD Ot R53.83 OTHER FATIGUE 04/21/2016 PRESTON DELEON MD Ot E11.9 TYPE 2 DIABETES MELLITUS WITHOUT COMPLIC 04/21/2016 PRESTON DELEON MD Ot F17.210 NICOTINE DEPENDENCE, CIGARETTES, UNCOMPL 04/21/2016 PRESTON DELEON MD, Ot J44.9 CHRONIC OBSTRUCTIVE PULMONARY DISEASE, U 04/21/2016 PRESTON DELEON MD Ot R11.10 VOMITING, UNSPECIFIED 04/21/2016 PRESTON DELEON MD Ot R42 DIZZINESS AND GIDDINESS 04/21/2016 PRESTON DELEON MD Ot Z79.82 LINE UP EXAMINER (CURRENT) USE OF ASPIRIN 04/21/2016 PRESTON DELEON MD Ot Z79.84 LINE UP EXAMINER (CURRENT) USE OF ORAL HYPOGLYC 04/21/2016 PRESTON DELEON MD, Ot Z79.899 OTHER FPC (CURRENT) DRUG THERAPY 04/26/2016 PRESTON DELEON MD Ot E11.9 TYPE 2 DIABETES MELLITUS WITHOUT COMPLIC 04/26/2016 PRESTON DELEON MD Ot F17.210 NICOTINE DEPENDENCE, CIGARETTES, UNCOMPL 04/26/2016 PRESTON DELEON MD, Ot J44.9 CHRONIC OBSTRUCTIVE PULMONARY DISEASE, U 04/26/2016 PRESTON DELEON MD Ot R11.10 VOMITING, UNSPECIFIED 04/26/2016 PRESTON DELEON MD, Ot R42 DIZZINESS AND GIDDINESS 04/26/2016 PRESTON DELEON MD Ot Z79.82 LINE UP EXAMINER (CURRENT) USE OF ASPIRIN 04/26/2016 PRESTON DELEON MD, Ot Z79.84 FPC (CURRENT) USE OF ORAL HYPOGLYC 04/26/2016 PRESTON DELEON MD, Ot Z79.899 OTHER FPC (CURRENT) DRUG THERAPY 05/14/2017 ARELI DIOP MD Ot I70.211 ATHSCL [place] ARTERIES OF EXTRM W INTRMT 05/14/2017 ARELI DIOP MD Ot R82.99 OTHER ABNORMAL FINDINGS IN URINE 05/14/2017 ARELI DIOP MD Ot Z01.810 ENCOUNTER FOR PREPROCEDURAL CARDIOVASCUL 05/14/2017 ARELI DIOP MD Ot Z01.811 ENCOUNTER FOR PREPROCEDURAL RESPIRATORY 05/14/2017 ARELI DIOP MD Ot Z01.812 ENCOUNTER FOR PREPROCEDURAL LABORATORY E 05/19/2017 GAY DELEON, PRISCILA Hanson Ot K86.8 OTHER SPECIFIED DISEASES OF PANCREAS 05/19/2017 LORETO DELEON, MARIVEL Contreras Ot E11.9 TYPE 2 DIABETES MELLITUS WITHOUT COMPLIC 05/19/2017 MARIVEL DANGELO MD Ot G60.9 HEREDITARY AND IDIOPATHIC NEUROPATHY, UN 05/19/2017 MARIVEL DANGELO MD Ot I70.201 UNSP ATHSCL [place] ARTERIES OF EXTREMITI 05/19/2017 MARIVEL DANGELO MD Ot R53.83 OTHER FATIGUE 05/19/2017 ARELI DIOP MD, Ot I70.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 [place] ARTERIES OF EXTRM W INTRMT 05/19/2017 ARELI DIOP MD, Ot R82.99 OTHER ABNORMAL FINDINGS IN URINE 05/19/2017 ARELI DIOP MD Ot Z01.810 ENCOUNTER FOR PREPROCEDURAL CARDIOVASCUL 05/19/2017 ARELI DIOP MD, Ot Z01.811 ENCOUNTER FOR PREPROCEDURAL RESPIRATORY 05/19/2017 ARELI DIOP MD, Ot Z01.812 ENCOUNTER FOR PREPROCEDURAL LABORATORY E 05/21/2017 LEONA BRIZUELA Ot J98.4 OTHER DISORDERS OF LUNG 05/21/2017 LEONA BRIZUELA Ot K80.20 CALCULUS OF GALLBLADDER W/O CHOLECYSTITI 05/26/2017 LEONA BRIZUELA Ot J98.4 OTHER DISORDERS OF LUNG 05/26/2017 LEONA BRIZUELA Ot K80.20 CALCULUS OF GALLBLADDER W/O CHOLECYSTITI 06/04/2017 SURINDER CRAWFORD MD Ot E11.9 TYPE 2 DIABETES MELLITUS WITHOUT COMPLIC 06/04/2017 SURINDER CRAWFORD MD Ot E78.2 MIXED HYPERLIPIDEMIA 06/04/2017 SURINDER CRAWFORD MD Ot G89.4 CHRONIC PAIN SYNDROME 06/04/2017 SURINDER CRAWFORD MD Ot I34.0 NONRHEUMATIC MITRAL (VALVE) INSUFFICIENC 06/04/2017 SURINDER CRAWFORD MD Ot I73.9 PERIPHERAL VASCULAR DISEASE, UNSPECIFIED 06/04/2017 SURINDER CRAWFORD MD Ot M51.36 OTHER INTERVERTEBRAL DISC DEGENERATION, 06/05/2017 SURINDER CRAWFORD MD Ot E11.9 TYPE 2 DIABETES MELLITUS WITHOUT COMPLIC 06/05/2017 SURINDER CRAWFORD MD Ot E78.2 MIXED HYPERLIPIDEMIA 06/05/2017 SURINDER CRAWFORD MD Ot G89.4 CHRONIC PAIN SYNDROME 06/05/2017 SURINDER CRAWFORD MD Ot I73.9 PERIPHERAL VASCULAR DISEASE, UNSPECIFIED 06/05/2017 SURINDER CRAWFORD MD Ot M51.36 OTHER INTERVERTEBRAL DISC DEGENERATION, 06/09/2017 LEONA BRIZUELA Ot J98.4 OTHER DISORDERS OF LUNG 06/09/2017 LEONA BRIZUELA Ot K80.20 CALCULUS OF GALLBLADDER W/O CHOLECYSTITI 06/10/2017 ARELI DIOP MD Ot I70.211 ATHSCL [place]AS[place] ARTERIES OF EXTRM W INTRMT 06/10/2017 ARELI DIOP MD Ot R82.99 OTHER ABNORMAL FINDINGS IN URINE 06/10/2017 ARELI DIOP MD Ot Z01.810 ENCOUNTER FOR PREPROCEDURAL CARDIOVASCUL 06/10/2017 ARELI DIOP MD Ot Z01.811 ENCOUNTER FOR PREPROCEDURAL RESPIRATORY 06/10/2017 ARELI DIOP MD, Ot Z01.812 ENCOUNTER FOR PREPROCEDURAL LABORATORY E 06/11/2017 ARELI DIOP MD Ot I70.211 ATHSCL [place] ARTERIES OF EXTRM W INTRMT 06/11/2017 ARELI DIOP MD Ot R82.99 OTHER ABNORMAL FINDINGS IN URINE 06/11/2017 ARELI DIOP MD Ot Z01.810 ENCOUNTER FOR PREPROCEDURAL CARDIOVASCUL 06/11/2017 ARELI DIOP MD Ot Z01.811 ENCOUNTER FOR PREPROCEDURAL RESPIRATORY 06/11/2017 ARELI DIOP MD Ot Z01.812 ENCOUNTER FOR PREPROCEDURAL LABORATORY E 06/17/2017 LEONA BRIZUELA Ot J98.4 OTHER DISORDERS OF LUNG 06/17/2017 LEONA BRIZUELA Ot K80.20 CALCULUS OF GALLBLADDER W/O CHOLECYSTITI 06/23/2017 SURINDER CRAWFORD MD Ot E11.9 TYPE 2 DIABETES MELLITUS WITHOUT COMPLIC 06/23/2017 SURINDER CRAWFORD MD Ot E78.2 MIXED HYPERLIPIDEMIA 06/23/2017 SURINDER CRAWFORD MD Ot G89.4 CHRONIC PAIN SYNDROME 06/23/2017 SURINDER CRAWFORD MD Ot I34.0 NONRHEUMATIC MITRAL (VALVE) INSUFFICIENC 06/23/2017 SURINDER CRAWFORD MD Ot I73.9 PERIPHERAL VASCULAR DISEASE, UNSPECIFIED 06/23/2017 SURINDER CRAWFORD MD Ot M51.36 OTHER INTERVERTEBRAL DISC DEGENERATION, 06/24/2017 SURINDER CRAWFORD MD Ot E11.9 TYPE 2 DIABETES MELLITUS WITHOUT COMPLIC 06/24/2017 SURINDER CRAWFORD MD Ot E78.2 MIXED HYPERLIPIDEMIA 06/24/2017 SURINDER CRAWFORD MD Ot G89.4 CHRONIC PAIN SYNDROME 06/24/2017 SURINDER CRAWFORD MD Ot I73.9 PERIPHERAL VASCULAR DISEASE, UNSPECIFIED 06/24/2017 SURINDER CRAWFORD MD Ot M51.36 OTHER INTERVERTEBRAL DISC DEGENERATION, 06/24/2017 SURINDER CRAWFORD MD Ot E11.9 TYPE 2 DIABETES MELLITUS WITHOUT COMPLIC 06/24/2017 SURINDER CRAWFORD MD Ot E78.2 MIXED HYPERLIPIDEMIA 06/24/2017 SURINDER CRAWFORD MD Ot G89.4 CHRONIC PAIN SYNDROME 06/24/2017 SURINDER CRAWFORD MD Ot I34.0 NONRHEUMATIC MITRAL (VALVE) INSUFFICIENC 06/24/2017 SURINDER CRAWFORD MD Ot I73.9 PERIPHERAL VASCULAR DISEASE, UNSPECIFIED 06/24/2017 SURINDER CRAWFORD MD Ot M51.36 OTHER INTERVERTEBRAL DISC DEGENERATION, 07/08/2017 GAY DELEON, PRISCILA Hanson Ot K86.8 OTHER SPECIFIED DISEASES OF PANCREAS 07/08/2017 MARIVEL DANGELO MD Ot E11.9 TYPE 2 DIABETES MELLITUS WITHOUT COMPLIC 07/08/2017 MARIVEL DANGELO MD, Ot G60.9 HEREDITARY AND IDIOPATHIC NEUROPATHY, UN 07/08/2017 MARIVEL DANGELO MD Ot I70.201 UNSP ATHSCL KASAAN ARTERIES OF EXTREMITI 07/08/2017 MARIVEL DANGELO MD Ot R53.83 OTHER FATIGUE 07/08/2017 ARELI DIOP MD, Ot I70.211 ATHSCL K[place] ARTERIES OF EXTRM W INTRMT 07/08/2017 ARELI DIOP MD, Ot R82.99 OTHER ABNORMAL FINDINGS IN URINE 07/08/2017 ARELI DIOP MD, Ot Z01.810 ENCOUNTER FOR PREPROCEDURAL CARDIOVASCUL 07/08/2017 ARELI DIOP MD, Ot Z01.811 ENCOUNTER FOR PREPROCEDURAL RESPIRATORY 07/08/2017 ARELI DIOP MD, Ot Z01.812 ENCOUNTER FOR PREPROCEDURAL LABORATORY E 07/08/2017 LEONA BRIZUELA JUVENAL Ot J98.4 OTHER DISORDERS OF LUNG 07/08/2017 LEONA BRIZUELA JUVENAL Ot K80.20 CALCULUS OF GALLBLADDER W/O CHOLECYSTITI 07/08/2017 SURINDER CRAWFORD MD Ot E11.9 TYPE 2 DIABETES MELLITUS WITHOUT COMPLIC 07/08/2017 SURINDER CRAWFORD MD Ot E78.2 MIXED HYPERLIPIDEMIA 07/08/2017 SURINDER CRAWFORD MD Ot G89.4 CHRONIC PAIN SYNDROME 07/08/2017 SURINDER CRAWFORD MD Ot I34.0 NONRHEUMATIC MITRAL (VALVE) INSUFFICIENC 07/08/2017 SURINDER CRAWFORD MD Ot I73.9 PERIPHERAL VASCULAR DISEASE, UNSPECIFIED 07/08/2017 SURINDER CRAWFORD MD Ot M51.36 OTHER INTERVERTEBRAL DISC DEGENERATION, 07/08/2017 SURINDER CRAWFORD MD Ot E11.9 TYPE 2 DIABETES MELLITUS WITHOUT COMPLIC 07/08/2017 SURINDER CRAWFORD MD Ot E78.2 MIXED HYPERLIPIDEMIA 07/08/2017 SURINDER CRAWFORD MD Ot G89.4 CHRONIC PAIN SYNDROME 07/08/2017 SURINDER CRAWFORD MD Ot I73.9 PERIPHERAL VASCULAR DISEASE, UNSPECIFIED 07/08/2017 SURINDER CRAWFORD MD Ot M51.36 OTHER INTERVERTEBRAL DISC DEGENERATION, 07/16/2017 ARELI DIOP MD Ot N39.0 URINARY TRACT INFECTION, SITE NOT SPECIF 07/21/2017 ARELI DIOP MD Ot N39.0 URINARY TRACT INFECTION, SITE NOT SPECIF 07/28/2017 ARELI DIOP MD Ot N39.0 URINARY TRACT INFECTION, SITE NOT SPECIF 08/05/2017 ARELI DIOP MD Ot N39.0 URINARY TRACT INFECTION, SITE NOT SPECIF 10/06/2017 JESSE DELEON, DARIA J Ot 786.2 COUGH 10/06/2017 PRISCILA RASHID MD Ot 786.50 CHEST PAIN NOS 10/06/2017 PRISCILA RASHID MD Ot 719.47 JOINT PAIN-ANKLE 10/06/2017 JANETTE LACY MD Ot 721.0 CERVICAL SPONDYLOSIS 10/06/2017 JANETTE LACY MD Ot 722.11 THORACIC DISC DISPLACMNT 10/06/2017 SEBASTIAN CELIS MD Ot 338.4 CHRONIC PAIN SYNDROME 10/06/2017 SEBASTIAN CELIS MD Ot 722.52 LUMB/LUMBOSAC DISC DEGEN 10/06/2017 SEBASTIAN CELIS MD Ot V72.84 EXAM PRE-OPERATIVE NOS 10/06/2017 JANETTE LACY MD Ot 724.00 SPINAL STENOSIS NOS 10/06/2017 JANETTE LACY MD Ot V02.54 CARRIER, SUSP BARR METHICILLIN RESISTN S 10/06/2017 JANETTE LACY MD Ot V72.83 EXAM PRE-OPERATIVE NEC 10/06/2017 JANETTE LACY MD, Ot V74.8 SCREEN-BACTERIAL DIS NEC 10/06/2017 GAY DELEON, PRISCILA Hanson Ot K86.8 OTHER SPECIFIED DISEASES OF PANCREAS 10/06/2017 MARIVEL DANGELO MD Ot E11.9 TYPE 2 DIABETES MELLITUS WITHOUT COMPLIC 10/06/2017 MARIVEL DANGELO MD Ot G60.9 HEREDITARY AND IDIOPATHIC NEUROPATHY, UN 10/06/2017 MARIVEL DANGELO MD Ot I70.201 UNSP ATHSCL [place]AS[place]AN ARTERIES OF EXTREMITI 10/06/2017 MARIVEL DANGELO MD Ot R53.83 OTHER FATIGUE 10/06/2017 ARELI DIOP MD Ot I70.211 ATHSCL [place] ARTERIES OF EXTRM W INTRMT 10/06/2017 ARELI DIOP MD Ot R82.99 OTHER ABNORMAL FINDINGS IN URINE 10/06/2017 ARELI DIOP MD Ot Z01.810 ENCOUNTER FOR PREPROCEDURAL CARDIOVASCUL 10/06/2017 ARELI DIOP MD, Ot Z01.811 ENCOUNTER FOR PREPROCEDURAL RESPIRATORY 10/06/2017 ARELI DIOP MD, Ot Z01.812 ENCOUNTER FOR PREPROCEDURAL LABORATORY E 10/06/2017 LEONA BRIZUELA Ot J98.4 OTHER DISORDERS OF LUNG 10/06/2017 LEONA BRIZUELA Ot K80.20 CALCULUS OF GALLBLADDER W/O CHOLECYSTITI 10/06/2017 SURINDER CRAWFORD MD Ot E11.9 TYPE 2 DIABETES MELLITUS WITHOUT COMPLIC 10/06/2017 SURINDER CRAWFORD MD Ot E78.2 MIXED HYPERLIPIDEMIA 10/06/2017 SURINDER CRAWFORD MD Ot G89.4 CHRONIC PAIN SYNDROME 10/06/2017 SURINDER CRAWFORD MD Ot I34.0 NONRHEUMATIC MITRAL (VALVE) INSUFFICIENC 10/06/2017 SURINDER CRAWFORD MD Ot I73.9 PERIPHERAL VASCULAR DISEASE, UNSPECIFIED 10/06/2017 SURINDER CRAWFORD MD Ot M51.36 OTHER INTERVERTEBRAL DISC DEGENERATION, 10/06/2017 SURINDER CRAWFORD MD Ot E11.9 TYPE 2 DIABETES MELLITUS WITHOUT COMPLIC 10/06/2017 SURINDER CRAWFORD MD Ot E78.2 MIXED HYPERLIPIDEMIA 10/06/2017 SURINDER CRAWFORD MD Ot G89.4 CHRONIC PAIN SYNDROME 10/06/2017 SURINDER CRAWFORD MD Ot I73.9 PERIPHERAL VASCULAR DISEASE, UNSPECIFIED 10/06/2017 SURINDER CRAWFORD MD Ot M51.36 OTHER INTERVERTEBRAL DISC DEGENERATION, 10/06/2017 ARELI DIOP MD, Ot N39.0 URINARY TRACT INFECTION, SITE NOT SPECIF 10/06/2017 ARELI DIOP MD, Ot N39.0 URINARY TRACT INFECTION, SITE NOT SPECIF 10/06/2017 MARIVEL DANGELO MD, Ot M81.0 AGE-RELATED OSTEOPOROSIS W/O CURRENT PAT 10/09/2017 MARIVEL DANGELO MD, Ot M81.0 AGE-RELATED OSTEOPOROSIS W/O CURRENT PAT 10/09/2017 MARIVEL DANGELO MD Ot M85.88 OT DISRD OF BONE DENSITY AND STRUCTURE, 10/09/2017 MARIVEL DANGELO MD, Ot Z13.820 ENCOUNTER FOR SCREENING FOR OSTEOPOROSIS 12/07/2017 ARELI DIOP MD Ot I70.211 ATHSCL [place] ARTERIES OF EXTRM W INTRMT 12/07/2017 ARELI DIOP MD Ot R82.99 OTHER ABNORMAL FINDINGS IN URINE 12/07/2017 ARELI DIOP MD, Ot Z01.810 ENCOUNTER FOR PREPROCEDURAL CARDIOVASCUL 12/07/2017 ARELI DIOP MD, Ot Z01.811 ENCOUNTER FOR PREPROCEDURAL RESPIRATORY 12/07/2017 ARELI DIOP MD, Ot Z01.812 ENCOUNTER FOR PREPROCEDURAL LABORATORY E 12/07/2017 LEONA BRIZUELA Ot J98.4 OTHER DISORDERS OF LUNG 12/07/2017 LEONA BRIZUELA Ot K80.20 CALCULUS OF GALLBLADDER W/O CHOLECYSTITI 12/28/2017 JESSE DELEON, DARIA Paul Ot 786.2 COUGH 12/28/2017 GAY DELEON, PRISCILA Hanson Ot 786.50 CHEST PAIN NOS 12/28/2017 PRISCILA RASHID MD Ot 719.47 JOINT PAIN-ANKLE 12/28/2017 JANETTE LACY MD Ot 721.0 CERVICAL SPONDYLOSIS 12/28/2017 JANETTE LACY MD Ot 722.11 THORACIC DISC DISPLACMNT 12/28/2017 SEBASTIAN CELIS MD Ot 338.4 CHRONIC PAIN SYNDROME 12/28/2017 SEBASTIAN CELIS MD Ot 722.52 LUMB/LUMBOSAC DISC DEGEN 12/28/2017 SEBASTIAN CELIS MD Ot V72.84 EXAM PRE-OPERATIVE NOS 12/28/2017 JANETTE LACY MD Ot 724.00 SPINAL STENOSIS NOS 12/28/2017 JANETTE LACY MD Ot V02.54 CARRIER, SUSP BARR METHICILLIN RESISTN S 12/28/2017 JANETTE LACY MD Ot V72.83 EXAM PRE-OPERATIVE NEC 12/28/2017 JANETTE LACY MD Ot V74.8 SCREEN-BACTERIAL DIS NEC 12/28/2017 PRISCILA RASHID MD Ot K86.8 OTHER SPECIFIED DISEASES OF PANCREAS 12/28/2017 MARIVEL DANGELO MD Ot E11.9 TYPE 2 DIABETES MELLITUS WITHOUT COMPLIC 12/28/2017 MARIVEL DANGELO MD, Ot G60.9 HEREDITARY AND IDIOPATHIC NEUROPATHY, UN 12/28/2017 MARIVEL DANGELO MD Ot I70.201 UNSP ATHSCL K[place]AN ARTERIES OF EXTREMITI 12/28/2017 MARIVEL DANGELO MD Ot R53.83 OTHER FATIGUE 12/28/2017 ARELI DIOP MD, Ot I70.211 ATHSCL [place] ARTERIES OF EXTRM W INTRMT 12/28/2017 ARELI DIOP MD Ot R82.99 OTHER ABNORMAL FINDINGS IN URINE 12/28/2017 ARELI DIOP MD, Ot Z01.810 ENCOUNTER FOR PREPROCEDURAL CARDIOVASCUL 12/28/2017 ARELI DIOP MD, Ot Z01.811 ENCOUNTER FOR PREPROCEDURAL RESPIRATORY 12/28/2017 ARELI DIOP MD, Ot Z01.812 ENCOUNTER FOR PREPROCEDURAL LABORATORY E 12/28/2017 BRIZUELADAVIDIE [employer] [place] Ot J98.4 OTHER DISORDERS OF LUNG 12/28/2017 BRIZUELADAVIDIE [employer] [place] Ot K80.20 CALCULUS OF GALLBLADDER W/O CHOLECYSTITI 12/28/2017 SURINDER CRAWFORD MD Ot E11.9 TYPE 2 DIABETES MELLITUS WITHOUT COMPLIC 12/28/2017 SURINDER CRAWFORD MD Ot E78.2 MIXED HYPERLIPIDEMIA 12/28/2017 SURINDER CRAWFORD MD Ot G89.4 CHRONIC PAIN SYNDROME 12/28/2017 SURINDER CRAWFORD MD Ot I34.0 NONRHEUMATIC MITRAL (VALVE) INSUFFICIENC 12/28/2017 SURINDER CRAWFORD MD Ot I73.9 PERIPHERAL VASCULAR DISEASE, UNSPECIFIED 12/28/2017 SURINDER CRAWFORD MD Ot M51.36 OTHER INTERVERTEBRAL DISC DEGENERATION, 12/28/2017 SURINDER CRAWFORD MD Ot E11.9 TYPE 2 DIABETES MELLITUS WITHOUT COMPLIC 12/28/2017 SURINDER CRAWFORD MD Ot E78.2 MIXED HYPERLIPIDEMIA 12/28/2017 SURINDER CRAWFORD MD Ot G89.4 CHRONIC PAIN SYNDROME 12/28/2017 SURINDER CRAWFORD MD Ot I73.9 PERIPHERAL VASCULAR DISEASE, UNSPECIFIED 12/28/2017 SURINDER CRAWFORD MD Ot M51.36 OTHER INTERVERTEBRAL DISC DEGENERATION, 12/28/2017 ARELI DIOP MD Ot N39.0 URINARY TRACT INFECTION, SITE NOT SPECIF 12/28/2017 ARELI DIOP MD Ot N39.0 URINARY TRACT INFECTION, SITE NOT SPECIF 12/28/2017 MARIVEL DANGELO MD Ot M81.0 AGE-RELATED OSTEOPOROSIS W/O CURRENT PAT 12/28/2017 MARIVEL DANGELO MD Ot M85.88 OT DISRD OF BONE DENSITY AND STRUCTURE, 12/28/2017 MARIVEL DANGELO MD Ot Z13.820 ENCOUNTER FOR SCREENING FOR OSTEOPOROSIS 12/30/2017 HIPOLITO COSTA MD Ot E11.9 TYPE 2 DIABETES MELLITUS WITHOUT COMPLIC 12/30/2017 HIPOLITO COSTA MD Ot F17.210 NICOTINE DEPENDENCE, CIGARETTES, UNCOMPL 12/30/2017 HIPOLITO COSTA MD Ot F32.9 MAJOR DEPRESSIVE DISORDER, SINGLE EPISOD 12/30/2017 HIPOLITO COSTA MD Ot J18.9 PNEUMONIA, UNSPECIFIED ORGANISM 12/30/2017 HIPOLITO COSTA MD, Ot J44.9 CHRONIC OBSTRUCTIVE PULMONARY DISEASE, U 12/30/2017 HIPOLITO COSTA MD, Ot M54.9 DORSALGIA, UNSPECIFIED 12/30/2017 HIPOLITO COSTA MD Ot R05 COUGH 12/30/2017 HIPOLITO COSTA MD, Ot Z79.82 FPC (CURRENT) USE OF ASPIRIN 12/30/2017 HIPOLITO COSTA MD, Ot Z79.84 FPC (CURRENT) USE OF ORAL HYPOGLYC 12/30/2017 HIPOLITO COSTA MD, Ot Z88.2 ALLERGY STATUS TO SULFONAMIDES STATUS 12/30/2017 HIPOLITO COSTA MD, Ot Z88.8 ALLERGY STATUS TO OTH DRUG/MEDS/BIOL SUB 12/30/2017 HIPOLITO COSTA MD, Ot Z96.9 PRESENCE OF FUNCTIONAL IMPLANT, UNSPECIF Procedures There is no data. Results Test Result Range Complete blood count (CBC) with automated white blood cell (WBC) differential - 04/19/16 17:33 Blood leukocytes automated count (number/volume) 8.1 10*3/uL 4.3-11.0 Blood erythrocytes automated count (number/volume) 3.85 10*6/uL 4.35-5.85 Venous blood hemoglobin measurement (mass/volume) 12.3 g/dL 11.5-16.0 Blood hematocrit (volume fraction) 36 % 35-52 Automated erythrocyte mean corpuscular volume 93 [foz_us] 80-99 Automated erythrocyte mean corpuscular hemoglobin (mass per erythrocyte) 32 pg 25-34 Automated erythrocyte mean corpuscular hemoglobin concentration measurement ( mass/volume) 35 g/dL 32-36 Automated erythrocyte distribution width ratio 12.6 % 10.0-14.5 Automated blood platelet count (count/volume) 285 10*3/uL 130-400 Automated blood platelet mean volume measurement 10.7 [foz_us] 7.4-10.4 Automated blood neutrophils/100 leukocytes 61 % 42-75 Automated blood lymphocytes/100 leukocytes 29 % 12-44 Blood monocytes/100 leukocytes 9 % 0-12 Automated blood eosinophils/100 leukocytes 2 % 0-10 Automated blood basophils/100 leukocytes 1 % 0-10 Blood neutrophils automated count (number/volume) 4.9 10*3 1.8-7.8 Blood lymphocytes automated count (number/volume) 2.3 10*3 1.0-4.0 Blood monocytes automated count (number/volume) 0.7 10*3 0.0-1.0 Automated eosinophil count 0.1 10*3/uL 0.0-0.3 Automated blood basophil count (count/volume) 0.0 10*3/uL 0.0-0.1 Complete urinalysis with reflex to culture - 04/19/16 17:33 Urine color determination YELLOW NRG Urine clarity determination CLEAR NRG Urine pH measurement by test strip 8 5-9 Specific gravity of urine by test strip 1.015 1.016- 1.022 Urine protein assay by test strip, semi-quantitative 2+ NEGATIVE Urine glucose detection by automated test strip 3+ NEGATIVE Erythrocytes detection in urine sediment by light microscopy NEGATIVE NEGATIVE Urine ketones detection by automated test strip NEGATIVE NEGATIVE Urine nitrite detection by test strip NEGATIVE NEGATIVE Urine total bilirubin detection by test strip NEGATIVE NEGATIVE Urine urobilinogen measurement by automated test strip (mass/volume) NORMAL NORMAL Urine leukocyte esterase detection by dipstick 1+ NEGATIVE Automated urine sediment erythrocyte count by microscopy (number/high power field) NONE NRG Automated urine sediment leukocyte count by microscopy (number/high power field ) [HPF] NRG Bacteria detection in urine sediment by light microscopy TRACE NRG Squamous epithelial cells detection in urine sediment by light microscopy 5-10 NRG Crystals detection in urine sediment by light microscopy NONE NRG Casts detection in urine sediment by light microscopy NONE NRG Mucus detection in urine sediment by light microscopy NEGATIVE NRG Complete urinalysis with reflex to culture NO NRG Comprehensive metabolic panel - 04/19/16 17:33 Serum or plasma sodium measurement (moles/volume) 141 mmol/L 135-145 Serum or plasma potassium measurement (moles/volume) 4.0 mmol/L 3.6-5.0 Serum or plasma chloride measurement (moles/volume) 105 mmol/L 98-107 Carbon dioxide 25 mmol/L 21-32 Serum or plasma anion gap determination (moles/volume) 11 mmol/L 5-14 Serum or plasma urea nitrogen measurement (mass/volume) 17 mg/dL 7-18 Serum or plasma creatinine measurement (mass/volume) 1.15 mg/dL 0.60-1.30 Serum or plasma urea nitrogen/creatinine mass ratio 15 NRG Serum or plasma creatinine measurement with calculation of estimated glomerular filtration rate 46 NRG Serum or plasma glucose measurement (mass/volume) 203 mg/dL 70-105 Serum or plasma calcium measurement (mass/volume) 10.0 mg/dL 8.5-10.1 Serum or plasma total bilirubin measurement (mass/volume) 0.3 mg/dL 0.1-1.0 Serum or plasma alkaline phosphatase measurement (enzymatic activity/volume) 79 U/L 40-136 Serum or plasma aspartate aminotransferase measurement (enzymatic activity/ volume) 31 U/L 5-34 Serum or plasma alanine aminotransferase measurement (enzymatic activity/volume ) 51 U/L 0-55 Serum or plasma protein measurement (mass/volume) 6.6 g/dL 6.4-8.2 Serum or plasma albumin measurement (mass/volume) 4.2 g/dL 3.2-4.5 Automated blood complete blood count (hemogram) panel - 05/13/17 14:20 Blood leukocytes automated count (number/volume) 9.4 10*3/uL 4.3-11.0 Blood erythrocytes automated count (number/volume) 4.07 10*6/uL 4.35-5.85 Venous blood hemoglobin measurement (mass/volume) 13.1 g/dL 11.5-16.0 Blood hematocrit (volume fraction) 38 % 35-52 Automated erythrocyte mean corpuscular volume 93 [foz_us] 80-99 Automated erythrocyte mean corpuscular hemoglobin (mass per erythrocyte) 32 pg 25-34 Automated erythrocyte mean corpuscular hemoglobin concentration measurement ( mass/volume) 35 g/dL 32-36 Automated erythrocyte distribution width ratio 13.2 % 10.0-14.5 Automated blood platelet count (count/volume) 315 10*3/uL 130-400 Automated blood platelet mean volume measurement 10.5 [foz_us] 7.4-10.4 Comprehensive metabolic panel - 05/13/17 14:20 Serum or plasma sodium measurement (moles/volume) 140 mmol/L 135-145 Serum or plasma potassium measurement (moles/volume) 3.9 mmol/L 3.6-5.0 Serum or plasma chloride measurement (moles/volume) 104 mmol/L 98-107 Carbon dioxide 23 mmol/L 21-32 Serum or plasma anion gap determination (moles/volume) 13 mmol/L 5-14 Serum or plasma urea nitrogen measurement (mass/volume) 14 mg/dL 7-18 Serum or plasma creatinine measurement (mass/volume) 1.05 mg/dL 0.60-1.30 Serum or plasma urea nitrogen/creatinine mass ratio 13 NRG Serum or plasma creatinine measurement with calculation of estimated glomerular filtration rate 51 NRG Serum or plasma glucose measurement (mass/volume) 117 mg/dL 70-105 Serum or plasma calcium measurement (mass/volume) 10.4 mg/dL 8.5-10.1 Serum or plasma total bilirubin measurement (mass/volume) 0.4 mg/dL 0.1-1.0 Serum or plasma alkaline phosphatase measurement (enzymatic activity/volume) 86 U/L 40-136 Serum or plasma aspartate aminotransferase measurement (enzymatic activity/ volume) 17 U/L 5-34 Serum or plasma alanine aminotransferase measurement (enzymatic activity/volume ) 12 U/L 0-55 Serum or plasma protein measurement (mass/volume) 7.3 g/dL 6.4-8.2 Serum or plasma albumin measurement (mass/volume) 4.3 g/dL 3.2-4.5 Complete urinalysis with reflex to culture - 05/13/17 14:26 Urine color determination YELLOW NRG Urine clarity determination CLEAR NRG Urine pH measurement by test strip 7 5-9 Specific gravity of urine by test strip 1.010 1.016- 1.022 Urine protein assay by test strip, semi-quantitative 2+ NEGATIVE Urine glucose detection by automated test strip NEGATIVE NEGATIVE Erythrocytes detection in urine sediment by light microscopy 3+ NEGATIVE Urine ketones detection by automated test strip NEGATIVE NEGATIVE Urine nitrite detection by test strip NEGATIVE NEGATIVE Urine total bilirubin detection by test strip NEGATIVE NEGATIVE Urine urobilinogen measurement by automated test strip (mass/volume) NORMAL NORMAL Urine leukocyte esterase detection by dipstick 1+ NEGATIVE Automated urine sediment erythrocyte count by microscopy (number/high power field) [HPF] NRG Automated urine sediment leukocyte count by microscopy (number/high power field ) [HPF] NRG Bacteria detection in urine sediment by light microscopy FEW NRG Squamous epithelial cells detection in urine sediment by light microscopy 25-50 NRG Crystals detection in urine sediment by light microscopy NONE NRG Casts detection in urine sediment by light microscopy NONE NRG Mucus detection in urine sediment by light microscopy NEGATIVE NRG Complete urinalysis with reflex to culture YES NRG Bacterial urine culture - 05/13/17 14:26 Bacterial urine culture [id number] NRG COLONY COUNT 10,000/ML - 100,000/ML NRG FTX;REPORTABLE SENSITIVITY NOT USUALLY PERFORMED FOR NRG FREE TEXT ENTRY 2 THIS ORGANISM. NRG Complete urinalysis with reflex to culture - 07/08/17 13:27 Urine color determination YELLOW NRG Urine clarity determination CLEAR NRG Urine pH measurement by test strip 6 5-9 Specific gravity of urine by test strip 1.010 1.016- 1.022 Urine protein assay by test strip, semi-quantitative 3+ NEGATIVE Urine glucose detection by automated test strip 4+ NEGATIVE Erythrocytes detection in urine sediment by light microscopy 1+ NEGATIVE Urine ketones detection by automated test strip 3+ NEGATIVE Urine nitrite detection by test strip NEGATIVE NEGATIVE Urine total bilirubin detection by test strip NEGATIVE NEGATIVE Urine urobilinogen measurement by automated test strip (mass/volume) NORMAL NORMAL Urine leukocyte esterase detection by dipstick 1+ NEGATIVE Automated urine sediment erythrocyte count by microscopy (number/high power field) RARE NRG Automated urine sediment leukocyte count by microscopy (number/high power field ) [HPF] NRG Bacteria detection in urine sediment by light microscopy FEW NRG Squamous epithelial cells detection in urine sediment by light microscopy 10-25 NRG Crystals detection in urine sediment by light microscopy NONE NRG Casts detection in urine sediment by light microscopy NONE NRG Mucus detection in urine sediment by light microscopy SMALL NRG Complete urinalysis with reflex to culture NO NRG Complete urinalysis with reflex to culture - 07/15/17 08:20 Urine color determination YELLOW NRG Urine clarity determination CLEAR NRG Urine pH measurement by test strip 6.5 5-9 Specific gravity of urine by test strip 1.015 1.016- 1.022 Urine protein assay by test strip, semi-quantitative 2+ NEGATIVE Urine glucose detection by automated test strip 4+ NEGATIVE Erythrocytes detection in urine sediment by light microscopy 2+ NEGATIVE Urine ketones detection by automated test strip NEGATIVE NEGATIVE Urine nitrite detection by test strip NEGATIVE NEGATIVE Urine total bilirubin detection by test strip NEGATIVE NEGATIVE Urine urobilinogen measurement by automated test strip (mass/volume) NORMAL NORMAL Urine leukocyte esterase detection by dipstick 1+ NEGATIVE Automated urine sediment erythrocyte count by microscopy (number/high power field) [HPF] NRG Automated urine sediment leukocyte count by microscopy (number/high power field ) [HPF] NRG Bacteria detection in urine sediment by light microscopy FEW NRG Squamous epithelial cells detection in urine sediment by light microscopy 2-5 NRG Crystals detection in urine sediment by light microscopy NONE NRG Casts detection in urine sediment by light microscopy PRESENT NRG Mucus detection in urine sediment by light microscopy NEGATIVE NRG Complete urinalysis with reflex to culture NO NRG Hyaline casts detection in urine sediment by light microscopy 0-2 NRG Influenza virus A and B antigen detection - 12/28/17 10:22 FLU RESULT NEGATIVE FOR INFLUENZA A AND B ANTIGENS BY IA NRG Complete blood count (CBC) with automated white blood cell (WBC) differential - 12/28/17 10:31 Blood leukocytes automated count (number/volume) 14.0 10*3/uL 4.3-11.0 Blood erythrocytes automated count (number/volume) 3.03 10*6/uL 4.35-5.85 Venous blood hemoglobin measurement (mass/volume) 9.7 g/dL 11.5-16.0 Blood hematocrit (volume fraction) 29 % 35-52 Automated erythrocyte mean corpuscular volume 94 [foz_us] 80-99 Automated erythrocyte mean corpuscular hemoglobin (mass per erythrocyte) 32 pg 25-34 Automated erythrocyte mean corpuscular hemoglobin concentration measurement ( mass/volume) 34 g/dL 32-36 Automated erythrocyte distribution width ratio 13.7 % 10.0-14.5 Automated blood platelet count (count/volume) 316 10*3/uL 130-400 Automated blood platelet mean volume measurement 11.3 [foz_us] 7.4-10.4 Automated blood neutrophils/100 leukocytes 79 % 42-75 Automated blood lymphocytes/100 leukocytes 9 % 12-44 Blood monocytes/100 leukocytes 10 % 0-12 Automated blood eosinophils/100 leukocytes 1 % 0-10 Automated blood basophils/100 leukocytes 0 % 0-10 Blood neutrophils automated count (number/volume) 11.1 10*3 1.8-7.8 Blood lymphocytes automated count (number/volume) 1.3 10*3 1.0-4.0 Blood monocytes automated count (number/volume) 1.4 10*3 0.0-1.0 Automated eosinophil count 0.2 10*3/uL 0.0-0.3 Automated blood basophil count (count/volume) 0.1 10*3/uL 0.0-0.1 Comprehensive metabolic panel - 12/28/17 10:31 Serum or plasma sodium measurement (moles/volume) 138 mmol/L 135-145 Serum or plasma potassium measurement (moles/volume) 4.0 mmol/L 3.6-5.0 Serum or plasma chloride measurement (moles/volume) 102 mmol/L 98-107 Carbon dioxide 22 mmol/L 21-32 Serum or plasma anion gap determination (moles/volume) 14 mmol/L 5-14 Serum or plasma urea nitrogen measurement (mass/volume) 23 mg/dL 7-18 Serum or plasma creatinine measurement (mass/volume) 1.29 mg/dL 0.60-1.30 Serum or plasma urea nitrogen/creatinine mass ratio 18 NRG Serum or plasma creatinine measurement with calculation of estimated glomerular filtration rate 40 NRG Serum or plasma glucose measurement (mass/volume) 356 mg/dL 70-105 Serum or plasma calcium measurement (mass/volume) 10.4 mg/dL 8.5-10.1 Serum or plasma total bilirubin measurement (mass/volume) 0.7 mg/dL 0.1-1.0 Serum or plasma alkaline phosphatase measurement (enzymatic activity/volume) 98 U/L 40-136 Serum or plasma aspartate aminotransferase measurement (enzymatic activity/ volume) 13 U/L 5-34 Serum or plasma alanine aminotransferase measurement (enzymatic activity/volume ) 18 U/L 0-55 Serum or plasma protein measurement (mass/volume) 7.4 g/dL 6.4-8.2 Serum or plasma albumin measurement (mass/volume) 3.7 g/dL 3.2-4.5 CALCIUM CORRECTED 10.6 mg/dL 8.5-10.1 Blood manual differential performed detection - 12/28/17 10:31 Blood monocytes/100 leukocytes 11 % NRG Manual blood segmented neutrophils/100 leukocytes 77 % NRG Blood band neutrophils/100 leukocytes 0 % NRG Manual blood lymphocytes/100 leukocytes 11 % NRG Manual eosinophils/100 leukocytes in nose 1 % NRG Manual blood basophils/100 leukocytes 0 % NRG Blood erythrocyte morphology finding identification NORMAL NRG Encounters ACCT No. Visit Date/Time Discharge Status Pt. Type Provider Facility Loc./Unit Complaint [id number] 12/28/2017 09:59:00 12/28/2017 13:08:00 DIS Outpatient HIPOLITO COSTA MD [facility] ER COUGH;R SIDE BACK PAIN [id number] 10/08/2017 08:48:00 10/08/2017 23:59:59 CLS Outpatient MARIVEL DANGELO MD [facility] RAD OSTEOPOROSIS POSTMENOPAUSAL [id number] 07/15/2017 08:01:00 07/15/2017 23:59:59 CLS Outpatient ARELI DIOP MD [facility] LAB UTI N39.0 [id number] 07/08/2017 13:08:00 07/08/2017 23:59:59 CLS Outpatient ARELI DIOP MD [facility] LAB N39.0 [id number] 06/04/2017 07:49:00 06/04/2017 23:59:59 CLS Outpatient SURINDER CRAWFORD MD [facility] LAB G89.4 I73.9 M51.36 E11.9 E78.2 [id number] 06/03/2017 07:16:00 06/03/2017 23:59:59 CLS Outpatient SURINDER CRAWFORD MD [facility] CARD CHRONIC PAIN SYNDROME [id number] 06/02/2017 14:35:00 06/02/2017 23:59:59 CLS Preadmit SURINDER CRAWFORD MD [facility] CARD CHRONIC PAIN SYNDROME G89.4 [id number] 05/20/2017 12:30:00 05/20/2017 23:59:59 CLS Outpatient LEONA BRIZUELA [facility] RAD R91.8 [id number] 05/13/2017 13:34:00 05/13/2017 23:59:59 CLS Outpatient ARELI DIOP MD [facility] CARD Z01.810,Z01.818 [id number] 04/19/2016 16:45:00 04/19/2016 18:50:00 DIS Emergency PANCHO DELEON, PRESTON [place] [facility] ER DIZZINESS/VOMITING [id number] 05/25/2015 13:01:00 05/25/2015 23:59:59 CLS Outpatient MARIVEL DANGELO MD [facility] RAD CLAUDICATION BILATERAL [id number] 04/10/2015 08:48:00 04/10/2015 23:59:59 CLS Outpatient PRISCILA RASHID MD [facility] RAD ELEVATED PANCREATIC ENZYMES [id number] 11/06/2014 06:00:00 11/06/2014 11:15:00 DIS Outpatient JANETTE LACY MD [facility] STENOSIS [id number] 10/24/2014 09:41:00 10/24/2014 23:59:59 CLS Outpatient JANETTE LACY MD [facility] PREOP STENOSIS [id number] 09/18/2014 11:32:00 09/18/2014 15:25:00 DIS Outpatient SEBASTIAN CELIS MD [facility] CHRONIC PAIN SYNDROME; LUMBAR SPINAL STENOSIS [id number] 09/13/2014 13:19:00 09/13/2014 23:59:59 CLS Outpatient SEBASTIAN CELIS MD [facility] PREOP CHRONIC PAIN SYNDROME; LUMBAR SPINAL STENOSIS [id number] 03/01/2014 12:52:00 04/07/2014 14:50:00 DIS Outpatient GUTIERREZ FULLER MD [facility] REHAB BACK PAIN DDD [id number] 03/10/2014 07:41:00 03/10/2014 23:59:59 CLS Outpatient JANETTE LACY MD [facility] RAD STENOSIS [id number] 10/03/2013 10:11:00 10/03/2013 23:59:59 CLS Outpatient PRISCILA RASHID MD [facility] RAD PAIN L ANKLE [id number] 05/17/2013 07:11:00 05/17/2013 23:59:59 CLS Outpatient PRISCILA RASHID MD [facility] CARD CP [id number] 05/09/2013 15:29:00 05/09/2013 23:59:59 CLS Outpatient DARIA MOLINA MD [facility] RAD COUGH [id number] 11/10/2011 15:38:00 Document Registration [id number] 10/16/2010 10:48:00 Document Registration [id number] 04/17/2010 11:27:00 Document Registration [id number] 07/27/2009 18:23:00 Document Registration
--- NOTE | 2017-12-30 11:41 | ED General ---
General Stated Complaint: PNEUMONIA;NECK STIFFNESS;PAIN ALL OVER Source of Information: Patient Exam Limitations: No Limitations History of Present Illness Date Seen by Provider: Dec 30, 2017 Time Seen by Provider: 11:39 Initial Comments to ER with general malaise, headache, neck pain. The symptoms began last week. She was seen at [facility] and diagnosed with bronchitis. She was then seen here on Thursday (today is Thursday) in the emergency room and diagnosed with pneumonia. She was given Keflex and Zithromax at the time of diagnosis of bronchitis. She has since finished those but reports a persistent headache for the past week, pain to the posterior right shoulder, cough productive of green sputum. She denies fevers or chills. Timing/Duration: 1 Week Severity: Moderate Associated Systoms: Cough; No Fever/Chills Allergies and Home Medications Allergies Coded Allergies: Sulfa (Sulfonamide Antibiotics) (Unverified Allergy, Unknown, FEET AND ANKLE SWELLING, 09/13/14) linagliptin (Unverified Allergy, Unknown, RASH, 09/13/14) metformin (Unverified Allergy, Unknown, 09/13/14) saxagliptin (Unverified Allergy, Unknown, FEET AND ANKLE SWELLED, 09/13/14) Home Medications Acetaminophen with Codeine 1 Each Tablet, 1 EACH PO Q4H PRN for PAIN Prescribed by: JANETTE LACY on 11/06/14 0845 Aripiprazole 2 Mg Tablet, 1 MG PO DAILY, (Reported) TAKE 1/2 OF (2MG) TAB Aspirin 81 Mg Tablet.dr, 81 MG PO DAILY, (Reported) Calcium Cit/Mag/D3/Zn/Carrot Buncher/Jarrell 1 Each Tablet, 630 MG PO DAILY, (Reported) Citalopram Hydrobromide 20 Mg Tablet, 20 MG PO DAILY, (Reported) Folic Acid 0.8 Mg Tablet, 0.8 MG PO DAILY, (Reported) Glipizide 10 Mg Tablet, 10 MG PO BID, (Reported) Liraglutide 0.6 Mg/0.1 Ml Pen.injctr, 0.6 MG SQ DAILY, (Reported) Meclizine HCl 25 Mg Tablet, 25 MG PO 4 times a day Prescribed by: PRESTON DELEON on 04/19/16 1817 Multivitamins 1 Tab Tablet, 1 TAB PO DAILY, (Reported) [place]-3 Fatty Acids/Fish Oil 1 Each Capsule, 2,000 MG PO BID, (Reported) TAKE 2 (1000MG) TABS Oxybutynin Chloride 10 Mg Tab.osm.24, 10 MG PO DAILY, (Reported) Patient Home Medication List Home Medication List Reviewed: Yes Review of Systems Review of Systems Constitutional: see HPI, chills, malaise EENTM: see HPI Respiratory: see HPI, cough Cardiovascular: no symptoms reported Genitourinary: no symptoms reported Musculoskeletal: no symptoms reported Skin: no symptoms reported Psychiatric/Neurological: See HPI, Headache Hematologic/Lymphatic: No Symptoms Reported Immunological/Allergic: no symptoms reported Past Psnampl-Ummiqv-Yrurbz Hx Patient Social History Type Used: Cigarettes, Electronic/Vapor Recent Hopitalizations: No Immunizations Up To Date Date of Pneumonia Vaccine: Mar 23, 2006 Past Medical History Surgeries: Yes (STENT IN BLADDER AND REMOVED, R CAROTID ENDARTERECTOMY, TRIGGER FINGER X3, ) Hysterectomy, Tonsillectomy Respiratory: Yes COPD Cardiac: Yes (2 HEART STENTS) Neurological: No Reproductive Disorders: No Sexually Transmitted Disease: No Gastrointestinal: No Musculoskeletal: Yes (HIPS,KNEES AND LOWER BACK GIVES TROUBLE) Arthritis Endocrine: Yes Diabetes, Non-Insulin dep HEENT: Yes Cataract Loss of Vision: Bilateral Hearing Impairment: Hard of Hearing Cancer: No Psychosocial: Yes Depression Integumentary: No Blood Disorders: No Physical Exam Vital Signs Vital Signs - First Documented 12/30/17 11:57 Temp 97.6 Pulse 79 Resp 20 B/P (MAP) 186/83 (117) Pulse Ox 98 Capillary Refill : Height, Weight, BMI Height: 5'5.00" Weight: 116lbs. 0.0oz. 52.860284dy; 20.0 BMI Method:Stated General Appearance: No Apparent Distress, WD/WN Eyes: Bilateral Eye Normal Inspection, Bilateral Eye PERRL, Bilateral Eye EOMI HEENT: PERRL/EOMI, TMs Normal Neck: Full Range of Motion, Normal Inspection Respiratory: No Accessory Muscle Use, No Respiratory Distress, Rales ( bilateral bases) Cardiovascular: Regular Rate, Rhythm, Normal Peripheral Pulses Gastrointestinal: Non Tender, Soft Extremity: Normal Capillary Refill, Non Tender, No Calf Tenderness Neurologic/Psychiatric: Alert, Oriented x3 Skin: Normal Color, Warm/Dry Focused Exam Lactate Level 12/30/17 11:39: Lactic Acid Level 1.54 Lactic Acid Level Laboratory Tests Test 12/30/17 11:39 Lactic Acid Level 1.54 MMOL/L (0.50-2.00) Progress/Results/Core Measures Suspected Sepsis SIRS Temperature: Pulse: Respiratory Rate: Laboratory Tests 12/30/17 11:39: White Blood Count 11.5H Blood Pressure / Mean: 12/30/17 11:39: Lactic Acid Level 1.54 Laboratory Tests 12/30/17 11:39: Creatinine 1.13, Platelet Count 414H, Total Bilirubin 0.4 Results/Orders Lab Results Laboratory Tests Test 12/30/17 11:39 12/30/17 12:20 12/30/17 12:59 Range/Units White Blood Count 11.5 H 4.3-11.0 10^3/uL Red Blood Count 3.07 L 4.35-5.85 10^6/uL Hemoglobin 9.7 L 11.5-16.0 G/DL Hematocrit 29 L 35-52 % Mean Corpuscular Volume 95 80-99 FL Mean Corpuscular Hemoglobin 32 25-34 PG Mean Corpuscular Hemoglobin Concent 33 32-36 G/DL Red Cell Distribution Width 14.0 10.0-14.5 % Platelet Count 414 H 130-400 10^3/uL Mean Platelet Volume 11.1 H 7.4-10.4 FL Neutrophils (%) (Auto) 75 42-75 % Lymphocytes (%) (Auto) 15 12-44 % Monocytes (%) (Auto) 8 0-12 % Eosinophils (%) (Auto) 2 0-10 % Basophils (%) (Auto) 0 0-10 % Neutrophils # (Auto) 8.6 H 1.8-7.8 X 10^3 Lymphocytes # (Auto) 1.7 1.0-4.0 X 10^3 Monocytes # (Auto) 0.9 0.0-1.0 X 10^3 Eosinophils # (Auto) 0.2 0.0-0.3 10^3/uL Basophils # (Auto) 0.1 0.0-0.1 10^3/uL Sodium Level 137 135-145 MMOL/L Potassium Level 4.4 3.6-5.0 MMOL/L Chloride Level 103 98-107 MMOL/L Carbon Dioxide Level 22 21-32 MMOL/L Anion Gap 12 5-14 MMOL/L Blood Urea Nitrogen 14 7-18 MG/DL Creatinine 1.13 0.60-1.30 MG/DL Estimat Glomerular Filtration Rate 46 BUN/Creatinine Ratio 12 Glucose Level 419 *H 70-105 MG/DL Lactic Acid Level 1.54 0.50-2.00 MMOL/L Calcium Level 10.4 H 8.5-10.1 MG/DL Corrected Calcium 10.6 H 8.5-10.1 MG/DL Total Bilirubin 0.4 0.1-1.0 MG/DL Aspartate Amino Transf (AST/SGOT) 13 5-34 U/L Alanine Aminotransferase (ALT/SGPT) 24 0-55 U/L Alkaline Phosphatase 118 40-136 U/L B-Type Natriuretic Peptide 276.7 H <100.0 PG/ML Total Protein 7.3 6.4-8.2 GM/DL Albumin 3.7 3.2-4.5 GM/DL Urine Color YELLOW Urine Clarity SLIGHTLY CLOUDY Urine pH 7 5-9 Urine Specific [place] 1.005 L 1.016-1.022 Urine Protein 2+ H NEGATIVE Urine Glucose (UA) 4+ H NEGATIVE Urine Ketones NEGATIVE NEGATIVE Urine Nitrite NEGATIVE NEGATIVE Urine Bilirubin NEGATIVE NEGATIVE Urine Urobilinogen NORMAL NORMAL MG/DL Urine Leukocyte Esterase NEGATIVE NEGATIVE Urine RBC (Auto) NEGATIVE NEGATIVE Urine RBC NONE /HPF Urine WBC 0-2 /HPF Urine Squamous Epithelial Cells 2-5 /HPF Urine Crystals NONE /LPF Urine Bacteria FEW H /HPF Urine Casts NONE /LPF Urine Mucus NEGATIVE /LPF Urine Culture Indicated NO Glucometer 320 H 70-110 MG/DL My Orders Orders - LENA REYNOLDS APRN Cbc With Automated Diff (12/30/17 11:23) Comprehensive Metabolic Panel (12/30/17 11:23) Ua Culture If Indicated (12/30/17 11:23) Iv Heplock-Insert (Order) (12/30/17 11:23) Blood Culture (12/30/17 11:23) Lactic Acid Analyzer (12/30/17 11:23) Chest Pa/Lat (2 View) (12/30/17 11:35) Ct Head Wo (12/30/17 11:35) Ns Iv 1000 Ml (Sodium Chloride 0.9%) (12/30/17 11:45) Insulin (Regular) Human (Humulin R (Per (12/30/17 16:00) Ketorolac Injection (Toradol Injection) (12/30/17 12:45) Piperacillin Sodium/Tazobactam (Zosyn Vi (12/30/17 13:00) BNP (12/30/17 13:13) Medications Given in ED Current Medications Medications Dose Ordered Sig/Leeroy Route Start Time Stop Time Status Last Admin Dose Admin Ketorolac Tromethamine 15 mg ONCE ONCE IVP 12/30/17 12:45 12/30/17 12:46 DC 12/30/17 13:05 15 MG Piperacillin Sod/ Tazobactam Sod 4.5 gm/Sodium Chloride 100 ml @ 200 mls/hr ONCE ONCE IV 12/30/17 13:00 12/30/17 13:29 DC 12/30/17 13:06 200 MLS/HR Vital Signs/I&O 12/30/17 11:57 Temp 97.6 Pulse 79 Resp 20 B/P (MAP) 186/83 (117) Pulse Ox 98 Capillary Refill : Diagnostic Imaging Diagonstic Imaging: Xray Comments NAME: CRISTOBAL CANDELARIO MED REC#: [id number] PT STATUS: REG ER : 1940 PHYSICIAN: LENA REYNOLDS APRN ADMIT DATE: 12/30/17/ER Draft Date of Exam:12/30/17 CHEST PA/LAT (2 VIEW) INDICATION: Continued shortness of air, productive cough x5 days. TECHNIQUE: Two view chest 12:47 PM. CORRELATION STUDY: 12/28/2017 FINDINGS: Heart size stable. Vasculature slightly increased. Scattered pulmonary parenchymal densities are noted having adversely changed from prior study. This is most pronounced involving the lung bases, left greater than right. Small effusions. Apical pleural thickening with irregularity, particularly the right lung apex. Thoracic spine stimulator lead present. IMPRESSION: 1. Bibasilar infiltrates left greater than right appear to be adversely changed from prior study along with small pleural effusions. Followup imaging to resolution recommended. Dictated on workstation # [id number] Dict: 12/30/17 1240 Trans: 12/30/17 1245 TS [id number] Interpreted by: KENNEDI THOMAS DO Electronically signed by: Departure Impression Primary Impression: Pneumonia Additional Impression: Hyperglycemia Disposition: ADMITTED INPATIENT Condition: Stable Admissions Decision to Admit Reason: Admit from ER (General) Decision to Admit/Date: Dec 30, 2017 Time/Decision to Admit Time: 13:15 Departure-Patient Inst. Referrals: MARIVEL DANGELO MD (PCP/Family) Primary Care Physician LENA REYNOLDS APRN Dec 30, 2017 11:41
[2017-12-30] MEDS ORDERED: NS IV 1000 ML 1,000 ML IV SCH (11:45)
[2017-12-30 11:58] LABS: BASOPHILS # (AUTO) 0.1 10^3/uL (0.0-0.1); BASOPHILS % (AUTO) 0 % (0-10); EOSINOPHILS # (AUTO) 0.2 10^3/uL (0.0-0.3); EOSINOPHILS % (AUTO) 2 % (0-10); HEMATOCRIT 29 % (35-52); HEMOGLOBIN 9.7 G/DL (11.5-16.0); LYMPHOCYTES # (AUTO) 1.7 X 10^3 (1.0-4.0); LYMPHOCYTES % (AUTO) 15 % (12-44); MEAN CORPUSCULAR HEMOGLOBIN 32 PG (25-34); MEAN CORPUSCULAR HGB CONC 33 G/DL (32-36); MEAN CORPUSCULAR VOLUME 95 FL (80-99); MEAN PLATELET VOLUME 11.1 FL (7.4-10.4); MONOCYTES # (AUTO) 0.9 X 10^3 (0.0-1.0); MONOCYTES % (AUTO) 8 % (0-12); NEUTROPHILS # (AUTO) 8.6 X 10^3 (1.8-7.8); NEUTROPHILS % (AUTO) 75 % (42-75); PLATELET COUNT 414 10^3/uL (130-400); RED BLOOD COUNT 3.07 10^6/uL (4.35-5.85); WHITE BLOOD COUNT 11.5 10^3/uL (4.3-11.0)
[2017-12-30 12:13] LABS: ALBUMIN 3.7 GM/DL (3.2-4.5); BILIRUBIN,TOTAL 0.4 MG/DL (0.1-1.0); CALCIUM 10.4 MG/DL (8.5-10.1); CREATININE SERUM 1.13 MG/DL (0.60-1.30); POTASSIUM 4.4 MMOL/L (3.6-5.0); TOTAL PROTEIN 7.3 GM/DL (6.4-8.2)
[2017-12-30] MEDS ORDERED: KETOROLAC 30 MG/ML VIAL IVP ONE (12:45)
--- NOTE | 2017-12-30 12:45 | Diagnostic Imaging Report ---
INDICATION: Continued shortness of air, productive cough x5 days. TECHNIQUE: Two view chest 12:47 PM. CORRELATION STUDY: 12/28/2017 FINDINGS: Heart size stable. Vasculature slightly increased. Scattered pulmonary parenchymal densities are noted having adversely changed from prior study. This is most pronounced involving the lung bases, left greater than right. Small effusions. Apical pleural thickening with irregularity, particularly the right lung apex. Thoracic spine stimulator lead present. IMPRESSION: 1. Bibasilar infiltrates left greater than right appear to be adversely changed from prior study along with small pleural effusions. Followup imaging to resolution recommended. Dictated by: Dictated on workstation # [id number]
[2017-12-30 12:50] LABS: BILIRUBIN,URINE NEGATIVE (NEGATIVE); CLARITY,URINE SLIGHTLY CLOUDY; COLOR,URINE YELLOW; GLUCOSE, URINE (UA) 4+ (NEGATIVE); KETONES,URINE NEGATIVE (NEGATIVE); LEUKOCYTE ESTERASE ,URINE NEGATIVE (NEGATIVE); NITRITE,URINE NEGATIVE (NEGATIVE); PH,URINE 7 (5-9); PROTEIN,URINE 2+ (NEGATIVE); UROBILINOGEN,URINE NORMAL (NORMAL)
[2017-12-30 12:59] LABS: BACTERIA,URINE FEW /HPF; WBC,URINE 0-2 /HPF
[2017-12-30] MEDS ORDERED: PIPERACILLIN SODIUM/TAZOBACTAM 4.5 GM in NS (IVPB) 100 ML IV ONE (13:00)
--- NOTE | 2017-12-30 13:01 | Diagnostic Imaging Report ---
PROCEDURE: CT head without contrast. TECHNIQUE: Multiple contiguous axial images were obtained through the brain without the use of intravenous contrast. INDICATION: Shortness of air, productive cough x5 days. Head and neck pain. COMPARISON: None FINDINGS: There are diffuse atrophic changes with prominence of the ventricles and sulci. There are scattered areas of decreased attenuation, nonspecific but likely changes of chronic small vessel ischemic disease. There is otherwise normal chacon-white differentiation. No abnormal areas of attenuation to suggest edema from ischemia. There is no midline shift or mass effect. No evidence for acute intracranial hemorrhage or abnormal extra-axial fluid collection. Bony calvarium is intact. Paranasal sinuses are clear. Frontal sinuses hypoplastic. Mastoid air cells also appear clear. IMPRESSION: 1. No CT evidence for acute intracranial abnormality. 2. Age-related atrophic changes with changes of likely small vessel ischemic disease. Dictated by: Dictated on workstation # [id number]
[2017-12-30] MEDS ORDERED: CATHETER FLUSH 10 ML SYR IV PRN (15:00)
[2017-12-30] MEDS ORDERED: ONDANSETRON 4 MG/2 ML (SDV) Z0FRAN IV PRN (15:00)
[2017-12-30 15:18] VITALS: BP 186/83
[2017-12-30] MEDS ORDERED: RT-ALBUTEROL/IPRATROPIUM 3 ML (DUONEB) VIAL INH PRN (15:30)
[2017-12-30] MEDS ORDERED: inSUlin (REGULAR) HUMAN 1 UNIT/0.01 ML (CHARGE PER UNIT) IV SCH (16:00)
[2017-12-30] MEDS: NS W/KCL 40 MEQ/L 1,000 ML IV SCH ×2 (16:09→23:52)
[2017-12-30 16:36] VITALS: BP 153/63
[2017-12-30] MEDS: inSUlin ASPART (NovoLOG) 1 UNIT/0.01 ML (CHARGE PER UNIT) SC SCH ×2 (16:43→20:44)
[2017-12-30] MEDS: PIPERACILLIN/TAZO 4.5 GM/NS 100 ML IV SCH ×2 (19:07)
[2017-12-30 19:38] VITALS: BP 144/65
[2017-12-30] MEDS: RT-ALBUTEROL/IPRATROPIUM 3 ML (DUONEB) VIAL INH SCH (20:12)
[2017-12-31 00:30] VITALS: BP 121/56
[2017-12-31] MEDS: PIPERACILLIN/TAZO 4.5 GM/NS 100 ML IV SCH ×6 (03:10→19:11)
[2017-12-31 04:48] VITALS: BP 133/60
[2017-12-31 06:06] LABS: BASOPHILS % (AUTO) 0 % (0-10); EOSINOPHILS # (AUTO) 0.3 10^3/uL (0.0-0.3); EOSINOPHILS % (AUTO) 3 % (0-10); HEMATOCRIT 22 % (35-52); HEMOGLOBIN 7.2 G/DL (11.5-16.0); LYMPHOCYTES # (AUTO) 1.9 X 10^3 (1.0-4.0); LYMPHOCYTES % (AUTO) 20 % (12-44); MEAN CORPUSCULAR HEMOGLOBIN 31 PG (25-34); MEAN CORPUSCULAR HGB CONC 32 G/DL (32-36); MEAN CORPUSCULAR VOLUME 97 FL (80-99); MONOCYTES # (AUTO) 0.9 X 10^3 (0.0-1.0); MONOCYTES % (AUTO) 9 % (0-12); NEUTROPHILS # (AUTO) 6.6 X 10^3 (1.8-7.8); NEUTROPHILS % (AUTO) 68 % (42-75); PLATELET COUNT 350 10^3/uL (130-400); WHITE BLOOD COUNT 9.7 10^3/uL (4.3-11.0)
[2017-12-31] MEDS: inSUlin ASPART (NovoLOG) 1 UNIT/0.01 ML (CHARGE PER UNIT) SC SCH ×4 (06:06→21:22)
[2017-12-31 06:27] LABS: ALBUMIN 2.8 GM/DL (3.2-4.5); BILIRUBIN,TOTAL 0.3 MG/DL (0.1-1.0); CALCIUM 8.8 MG/DL (8.5-10.1); CREATININE SERUM 1.02 MG/DL (0.60-1.30); POTASSIUM 5.2 MMOL/L (3.6-5.0); TOTAL PROTEIN 5.5 GM/DL (6.4-8.2)
[2017-12-31 06:46] LABS: BASOPHILS % (AUTO) 0 % (0-10); EOSINOPHILS # (AUTO) 0.2 10^3/uL (0.0-0.3); EOSINOPHILS % (AUTO) 2 % (0-10); HEMATOCRIT 24 % (35-52); LYMPHOCYTES # (AUTO) 1.9 X 10^3 (1.0-4.0); LYMPHOCYTES % (AUTO) 19 % (12-44); MEAN CORPUSCULAR HEMOGLOBIN 31 PG (25-34); MEAN CORPUSCULAR HGB CONC 32 G/DL (32-36); MEAN CORPUSCULAR VOLUME 97 FL (80-99); MEAN PLATELET VOLUME 10.4 FL (7.4-10.4); MONOCYTES # (AUTO) 0.7 X 10^3 (0.0-1.0); MONOCYTES % (AUTO) 7 % (0-12); NEUTROPHILS # (AUTO) 7.1 X 10^3 (1.8-7.8); NEUTROPHILS % (AUTO) 71 % (42-75); PLATELET COUNT 370 10^3/uL (130-400); RED BLOOD COUNT 2.47 10^6/uL (4.35-5.85); RED CELL DISTRIBUTION WIDTH 13.7 % (10.0-14.5)
[2017-12-31 06:49] LABS: HEMOGLOBIN 7.7 G/DL (11.5-16.0)
[2017-12-31 07:33] VITALS: BP 142/63
[2017-12-31] MEDS: NS W/KCL 40 MEQ/L 1,000 ML IV SCH (07:52)
[2017-12-31] MEDS: RT-ALBUTEROL/IPRATROPIUM 3 ML (DUONEB) VIAL INH SCH (07:55)
[2017-12-31] MEDS ORDERED: CLOP75TA28 PO (08:58)
[2017-12-31] MEDS ORDERED: OXYB10TA PO (08:58)
[2017-12-31] MEDS ORDERED: GLIP10TA13 PO (08:58)
[2017-12-31] MEDS ORDERED: MULT1TAB69 PO (08:58)
[2017-12-31] MEDS ORDERED: FOLI0.8T PO (08:58)
[2017-12-31] MEDS ORDERED: METF-397 PO (08:58)
[2017-12-31] MEDS ORDERED: OMEG-77 PO (08:58)
[2017-12-31] MEDS ORDERED: CYAN100015 SL (09:25)
[2017-12-31] MEDS ORDERED: CALC-676 PO (09:25)
[2017-12-31] MEDS ORDERED: KRIL1CAP18 PO (09:25)
[2017-12-31] MEDS ORDERED: ASPI-983 PO (09:25)
[2017-12-31] MEDS ORDERED: PYRI100T2 PO (09:25)
--- NOTE | 2017-12-31 10:48 | History & Physical-Hospitalist ---
History of Present Illness HPI/Chief Complaint Pt is a 77yoCF with a PMH of PAD, HTN, DMII who presented to the ER with CC of cough. Her symptoms started last week and she was seen at an Urgent Care and was diagnosed with bronchitis and given Keflex and Azithromycin. She felt worse over the next two days and called the urgent Care who advised her to go to the ER on 12/28. She was diagnosed with pneumonia at that time and offered admission but she wanted to try outpatient management. She continued to have worsening cough and SOB with LAMB and decided to return to the ER for evaluation. She was found to have worsening bilateral pneumonia and was admitted for failing outpatient management. This morning she states she is feeling better but still short of breath with ambulation. Source: patient Date Seen 12/31/17 Time Seen by a Provider: 10:43 Attending Physician Delio Cardoso MD PCP George Martin MD Referring Physician Date of Admission Dec 30, 2017 at 13:29 Home Medications & Allergies Home Medications Reviewed patient Home Medication Reconciliation performed by pharmacy medication reconciliations marine services technician and/or nursing. Patients Allergies have been reviewed. Allergies Allergies Coded Allergies Sulfa (Sulfonamide Antibiotics) (Unverified Allergy, Unknown, FEET AND ANKLE SWELLING, 09/13/14) linagliptin (Unverified Allergy, Unknown, RASH, 09/13/14) metformin (Unverified Allergy, Unknown, 09/13/14) saxagliptin (Unverified Allergy, Unknown, FEET AND ANKLE SWELLED, 09/13/14) Past Skonowv-Zjutdn-Akbfwx Hx Past Med/Social Hx: Reviewed Nursing Past Med/Soc Hx Patient Social History Employed/Student: retired Alcohol Use: Denies Use Number of Drinks Today: AA Recreational Drug Use: No Smoking Status: Current Someday Smoker Type Used: Electronic/Vapor Physical Abuse Screen: No Sexual Abuse: No Recent Foreign Travel: No Contact w/other who traveled: No Recent Hopitalizations: No Recent Infectious Disease Expo: No Immunizations Up To Date Date of Pneumonia Vaccine: Mar 23, 2006 Date of Influenza Vaccine: Dec 02, 2017 Seasonal Allergies Seasonal Allergies: No Past Medical History Surgeries: Hysterectomy, Orthopedic, Tonsillectomy Cardiac: Hypertension, Peripheral Vascular Reproductive: No Sexually Transmitted Disease: No Genitourinary: Bladder Infection, UTI-Chronic Musculoskeletal: Arthritis Endocrine: Diabetes, Non-Insulin dep HEENT: Cataract Loss of Vision: Bilateral Hearing Impairment: Hard of Hearing Psychosocial: Depression History of Blood Disorders: No Family History Reviewed Nursing Family Hx No Pertinent Family Hx Review of Systems Constitutional: No chills, No fever; malaise EENTM: no symptoms reported Respiratory: cough, dyspnea on exertion, phlegm, short of breath Gastrointestinal: No abdominal pain, No constipation, No diarrhea, No nausea, No vomiting Genitourinary: other (frequent UTIs) Musculoskeletal: No muscle pain; neck pain Skin: no symptoms reported Psychiatric/Neurological: No Symptoms Reported Physical Exam Physical Exam Vital Signs Vital Signs - First Documented 12/30/17 12/30/17 11:57 16:19 Temp 97.6 Pulse 79 Resp 20 B/P (MAP) 186/83 (117) Pulse Ox 98 O2 Delivery Room Air Capillary Refill : Less Than 3 SecondsLess Than 3 Seconds Height, Weight, BMI Height: 5'5.00" Weight: 116lbs. 0.0oz. 52.009875tc; 19.3 BMI Method:Stated General Appearance: No Apparent Distress, WD/WN Respiratory: Crackles (right base) Cardiovascular: Regular Rate, Rhythm, No Murmur Gastrointestinal: Normal Bowel Sounds, Non Tender, Soft Extremity: No Calf Tenderness, No Pedal Edema Neurologic/Psychiatric: Alert, Oriented x3, Normal Mood/Affect Results Results/Procedures Labs Laboratory Tests 12/30/17 11:39 12/31/17 05:40 12/31/17 06:35 Patient resulted labs reviewed. Imaging: Reviewed Imaging Report Assessment/Plan Admission Diagnosis Pneumonia Admission Status: Inpatient Order (span 2 midnights) Reason for Inpatient Admission: failed outpatient, needs IV abx Diagnosis/Problems Diagnosis/Problems (1) Pneumonia Status: Acute Assessment & Plan: Failed outpatient treatment Does not meet sepsis criteria Continue Zosyn Sputum culture ordered Blood culture pending Qualifiers: Pneumonia type: due to unspecified organism Laterality: bilateral Lung location: lower lobe of lung Qualified Codes: J18.1 - Lobar pneumonia, unspecified organism (2) Non-insulin dependent type 2 diabetes mellitus Assessment & Plan: Sliding scale ordered Continue glipizide Will hold metformin Blood sugar elevated on arrival but now improved (3) Essential (primary) hypertension Assessment & Plan: Improving control trend (4) PAD (peripheral artery disease) Assessment & Plan: Anemia- new onset since last year Will hold ASA and Plavix for now FOBT ordered Consider Surgery consult (5) Normocytic anemia Assessment & Plan: New onset FOBT ordered Will discuss with surgery (6) Hyperkalemia Assessment & Plan: Likely iatrogenic from fluids Clinical Quality Measures DVT/VTE Risk/Contraindication: Risk Factor Score Per Nursin RFS Level Per Nursing on Admit: 2=Moderate DELIO CARDOSO MD Dec 31, 2017 10:48
[2017-12-31 11:00] VITALS: BP 138/96
[2017-12-31] MEDS: LACTOBACILLUS ACIDOPHILUS (PROBIOTIC) CAPSULE PO SCH ×2 (11:03→16:24)
[2017-12-31] MEDS: OXYBUTYNIN (DITROPAN) 5 MG TAB PO SCH ×2 (11:03→21:22)
--- NOTE | 2017-12-31 14:49 | Consultation ---
History of Present Illness History of Present Illness Patient Consulted On(tato/time) 12/31/17 14:43 Date Seen by Provider: Dec 31, 2017 Time Seen by Provider: 14:32 History of Present Illness Consulted by Dr Cardoso for anemia 77 year old female with Hx of HTN, DM, PAD who was admitted yesterday from ED for failed outpt management of her PNA. Pt states she has had a cough and been short of breath since last week and went to urgent care and was given Keflex and Azithromycin. Pt states she continued to have SOB and went to the ED on 12/28 and was Dx with PNA. Pt declined admission at that time. Pt returned to ED yesterday and was found to have worsening PNA and was admitted. Pt denies any fever, chills, CP, N/V/D, chills, change in stool, blood in stool, dark tarry stools. Pt admits LAMB, feeling weak, and productive cough and epigastric abdominal pain that she says has been going on for years. She states she was previously been found to have gallstones. She states she previously diagnosed with iron def anemia and tried to iron but no help. She does not notice any blood in her stools. She had a colonoscopy about a year ago or so she states. Pt denies any blood with her cough and denies SOB at rest, just LAMB. Allergies and Home Medications Allergies Coded Allergies: Sulfa (Sulfonamide Antibiotics) (Unverified Allergy, Unknown, FEET AND ANKLE SWELLING, 09/13/14) linagliptin (Unverified Allergy, Unknown, RASH, 09/13/14) metformin (Unverified Allergy, Unknown, 09/13/14) saxagliptin (Unverified Allergy, Unknown, FEET AND ANKLE SWELLED, 09/13/14) Home Medications Aspirin 81 Mg Tablet., 81 MG PO DAILY, (Reported) Calcium Carbonate/Vitamin D3 1 Each Tablet, 1 TAB PO DAILY, (Reported) Cephalexin 500 Mg Capsule, 500 MG PO TID, (Reported) 7 DAY THERAPY FILLED 12-25-17 Clopidogrel Bisulfate 75 Mg Tablet, 75 MG PO DAILY, (Reported) Cyanocobalamin (Vitamin B-12) 1,000 Mcg Tab.subl, 1,000 MCG SL DAILY, (Reported) Folic Acid 0.8 Mg Tablet, 0.8 MG PO DAILY, (Reported) Glipizide 10 Mg Tablet, 10 MG PO BID, (Reported) Krill/Om-3/Dha/Epa/Phospho/Ast 1 Each Capsule, 1 CAP PO DAILY, (Reported) Metformin HCl 500 Mg Tablet, 500 MG PO BID WITH MEALS, (Reported) Multivitamin 1 Each Tablet, 1 TAB PO DAILY, (Reported) Oxybutynin Chloride 10 Mg Tab.er.24, 10 MG PO DAILY, (Reported) Pyridoxine HCl 100 Mg Tablet, 100 MG PO DAILY, (Reported) Patient Home Medication List Home Medication List Reviewed: Yes Past Jpqowln-Ewahnt-Cmzzuk Hx Patient Social History Alcohol Use: Denies Use Number of Drinks Today: AA Recreational Drug Use: No Smoking Status: Current Someday Smoker Type Used: Electronic/Vapor Recent Foreign Travel: No Contact w/Someone Who Travel: No Recent Infectious Disease Expo: No Recent Hopitalizations: No Physical Abuse Screen: No Sexual Abuse: No Immunizations Up To Date Date of Pneumonia Vaccine: Mar 23, 2006 Date of Influenza Vaccine: Dec 02, 2017 Seasonal Allergies Seasonal Allergies: No Surgeries History of Surgeries: Yes (STENT IN BLADDER AND REMOVED, R CAROTID ENDARTERECTOMY, TRIGGER FINGER X3, ) Surgeries: Hysterectomy, Orthopedic, Tonsillectomy Respiratory History of Respiratory Disorde: Yes Respiratory Disorders: COPD Cardiovascular History of Cardiac Disorders: Yes (3 leg STENTS) Cardiac Disorders: Hypertension, Peripheral Vascular Neurological History of Neurological Disord: No Reproductive System Hx Reproductive Disorders: No Sexually Transmitted Disease: No Genitourinary History of Genitourinary Disor: Yes Genitourinary Disorders: Bladder Infection, UTI-Chronic Gastrointestinal History of Gastrointestinal Di: No Musculoskeletal History of Musculoskeletal Dis: Yes (HIPS,KNEES AND LOWER BACK GIVES TROUBLE) Musculoskeletal Disorders: Arthritis Endocrine History of Endocrine Disorders: Yes Endocrine Disorders: Diabetes, Non-Insulin dep HEENT History of HEENT Disorders: Yes HEENT Disorders: Cataract Loss of Vision: Bilateral Hearing Impairment: Hard of Hearing Cancer History of Cancer: No Psychosocial History of Psychiatric Problem: Yes Behavioral Health Disorders: Depression Integumentary History of Skin or Integumenta: No Blood Transfusions History of Blood Disorders: No Family Medical History Significant Family History: No Pertinent Family Hx Review of Systems-General Constitutional: No chills, No fever; weakness EENTM: no symptoms reported Respiratory: dyspnea on exertion Cardiovascular: No chest pain Gastrointestinal: abdominal pain (chronic); No constipation, No diarrhea, No melena, No nausea, No vomiting Musculoskeletal: no symptoms reported Skin: no symptoms reported Psychiatric/Neurological: No Symptoms Reported Physical Exam-General Problems Physical Exam Vital Signs Vital Signs - First Documented 12/30/17 12/30/17 11:57 16:19 Temp 97.6 Pulse 79 Resp 20 B/P (MAP) 186/83 (117) Pulse Ox 98 O2 Delivery Room Air Capillary Refill : Less Than 3 SecondsLess Than 3 Seconds General Appearance: no apparent distress Eyes: Bilateral Eye EOMI Neck: full range of motion, supple Respiratory: no respiratory distress, crackles Cardiovascular: regular rate, rhythm Gastrointestinal: non tender, soft Rectal: deferred Back: no CVA tenderness Extremities: normal range of motion Neurologic/Psychiatric: alert, normal mood/affect Skin: warm/dry Data Review Labs Laboratory Tests 12/30/17 16:41: Glucometer 161H 12/30/17 20:26: Glucometer 260H 12/31/17 05:19: Glucometer 225H 12/31/17 05:40: White Blood Count 9.7, Red Blood Count 2.30L, Hemoglobin 7.2#L, Hematocrit 22L, Mean Corpuscular Volume 97, Mean Corpuscular Hemoglobin 31, Mean Corpuscular Hemoglobin Concent 32, Red Cell Distribution Width 14.0, Platelet Count 350, Mean Platelet Volume 11.0H, Neutrophils (%) (Auto) 68, Lymphocytes (%) (Auto) 20 , Monocytes (%) (Auto) 9, Eosinophils (%) (Auto) 3, Basophils (%) (Auto) 0, Neutrophils # (Auto) 6.6, Lymphocytes # (Auto) 1.9, Monocytes # (Auto) 0.9, Eosinophils # (Auto) 0.3, Basophils # (Auto) 0.0, Sodium Level 139, Potassium Level 5.2H, Chloride Level 113#H, Carbon Dioxide Level 17L, Anion Gap 9, Blood Urea Nitrogen 13, Creatinine 1.02, Estimat Glomerular Filtration Rate 52, BUN/ Creatinine Ratio 13, Glucose Level 186H, Calcium Level 8.8, Corrected Calcium 9.8, Total Bilirubin 0.3, Aspartate Amino Transf (AST/SGOT) 17, Alanine Aminotransferase (ALT/SGPT) 20, Alkaline Phosphatase 88, Total Protein 5.5L, Albumin 2.8L 12/31/17 06:35: White Blood Count 10.0, Red Blood Count 2.47L, Hemoglobin 7.7L, Hematocrit 24L, Mean Corpuscular Volume 97, Mean Corpuscular Hemoglobin 31, Mean Corpuscular Hemoglobin Concent 32, Red Cell Distribution Width 13.7, Platelet Count 370, Mean Platelet Volume 10.4, Neutrophils (%) (Auto) 71, Lymphocytes (%) (Auto) 19 , Monocytes (%) (Auto) 7, Eosinophils (%) (Auto) 2, Basophils (%) (Auto) 0, Neutrophils # (Auto) 7.1, Lymphocytes # (Auto) 1.9, Monocytes # (Auto) 0.7, Eosinophils # (Auto) 0.2, Basophils # (Auto) 0.0 12/31/17 11:15: Glucometer 315H Assessment/Plan Assessment/Plan Assessment/Plan Bilateral Pneumonia anemia- patient reports hx of Iron deficiency anemia PAD DM Patient reports gallstones We discussed with patient colonoscopy and EGD outpatient vs inpatient after PNA resovles. Will Get FOBT currently. No surgical intervention at this time. Will follow Physician Assessment Physician Assessment Scribed by Osmel Muñiz MS3 for Dr. Robertson Clinical Quality Measures DVT/VTE Risk/Contraindication: Risk Factor Score Per Nursin RFS Level Per Nursing on Admit: 2=Moderate BRIDGET MUÑIZ MEDICAL STUDENT Dec 31, 2017 14:49 CHRISTIANO ROBERTSON DO Dec 31, 2017 16:56
[2017-12-31 16:03] VITALS: BP 140/60
[2017-12-31] MEDS: glipiZIDE 5 MG (GLUCOTROL) TAB PO SCH (16:25)
[2017-12-31] MEDS ORDERED: KETOROLAC 30 MG/ML VIAL IVP ONE (19:45)
[2017-12-31] MEDS ORDERED: KETOROLAC 30 MG/ML VIAL ONE (19:53)
[2017-12-31 20:08] VITALS: BP 175/72
[2018-01-01 00:24] VITALS: BP 120/68
[2018-01-01] MEDS: PIPERACILLIN/TAZO 4.5 GM/NS 100 ML IV SCH ×6 (03:06→18:38)
[2018-01-01 04:22] VITALS: BP 157/72
[2018-01-01] MEDS: inSUlin ASPART (NovoLOG) 1 UNIT/0.01 ML (CHARGE PER UNIT) SC SCH ×4 (05:24→20:31)
[2018-01-01 06:32] LABS: BASOPHILS % (AUTO) 0 % (0-10); EOSINOPHILS # (AUTO) 0.2 10^3/uL (0.0-0.3); EOSINOPHILS % (AUTO) 3 % (0-10); HEMATOCRIT 23 % (35-52); HEMOGLOBIN 7.3 G/DL (11.5-16.0); LYMPHOCYTES % (AUTO) 23 % (12-44); MEAN CORPUSCULAR HEMOGLOBIN 31 PG (25-34); MEAN CORPUSCULAR HGB CONC 32 G/DL (32-36); MEAN CORPUSCULAR VOLUME 98 FL (80-99); MEAN PLATELET VOLUME 10.7 FL (7.4-10.4); MONOCYTES # (AUTO) 0.7 X 10^3 (0.0-1.0); MONOCYTES % (AUTO) 8 % (0-12); NEUTROPHILS # (AUTO) 5.7 X 10^3 (1.8-7.8); NEUTROPHILS % (AUTO) 66 % (42-75); PLATELET COUNT 399 10^3/uL (130-400); RED BLOOD COUNT 2.33 10^6/uL (4.35-5.85); WHITE BLOOD COUNT 8.6 10^3/uL (4.3-11.0)
[2018-01-01] MEDS: LACTOBACILLUS ACIDOPHILUS (PROBIOTIC) CAPSULE PO SCH ×3 (06:37→16:00)
[2018-01-01] MEDS: glipiZIDE 5 MG (GLUCOTROL) TAB PO SCH ×2 (06:38→16:00)
[2018-01-01 06:52] LABS: CALCIUM 9.2 MG/DL (8.5-10.1); CREATININE SERUM 1.24 MG/DL (0.60-1.30); POTASSIUM 4.7 MMOL/L (3.6-5.0)
[2018-01-01] MEDS: RT-ALBUTEROL/IPRATROPIUM 3 ML (DUONEB) VIAL INH SCH ×2 (07:19→18:53)
[2018-01-01 08:00] VITALS: BP 132/60
[2018-01-01] MEDS: OXYBUTYNIN (DITROPAN) 5 MG TAB PO SCH ×2 (08:39→20:08)
--- NOTE | 2018-01-01 09:19 | Progress Note ---
Subjective Date Seen by a Provider: Jan 01, 2018 Time Seen by a Provider: 09:17 Subjective/Events-last exam laying in bed feeling comfortable. breathing easier. Not noticed any blood in stools. Not having any abdominal pain. Not having any new issues. Hgb7.2 . Denies n/v fever sweats chills shortness of breath or chest pain at this time. Focused Exam Lactate Level 12/30/17 11:39: Lactic Acid Level 1.54 Objective Exam Vital Signs Date Time Temp Pulse Resp B/P (MAP) Pulse Ox O2 Delivery O2 Flow Rate FiO2 01/01/18 08:00 96.0 80 16 132/60 (84) 96 Room Air 01/01/18 07:19 93 Room Air 01/01/18 07:00 63 01/01/18 04:22 97.5 68 18 157/72 (100) 98 Room Air 01/01/18 01:00 67 01/01/18 00:24 97.7 74 22 120/68 (85) 96 Room Air 12/31/17 20:08 98.4 98 18 175/72 (106) 97 Room Air 12/31/17 20:00 Room Air 12/31/17 19:32 97 12/31/17 18:48 96 Room Air 12/31/17 16:03 98.8 73 16 140/60 (86) 96 Room Air 12/31/17 13:00 80 12/31/17 11:00 98.6 85 16 138/96 (110) 95 Room Air I & O 01/01/18 07:00 Intake Total 2910 ml Balance 2910 ml Capillary Refill : Less Than 3 SecondsLess Than 3 Seconds General Appearance: No Apparent Distress, WD/WN HEENT: PERRL/EOMI, TMs Normal Neck: Full Range of Motion, Normal Inspection Respiratory: Chest Non Tender, No Accessory Muscle Use, No Respiratory Distress Cardiovascular: Regular Rate, Rhythm, No Murmur Gastrointestinal: non tender, soft Extremity: No Calf Tenderness, No Pedal Edema Neurologic/Psychiatric: Alert, Oriented x3, Normal Mood/Affect Skin: Normal Color, Warm/Dry Results Lab Laboratory Tests 12/31/17 11:15: Glucometer 315H 12/31/17 16:02: Glucometer 301H 12/31/17 21:12: Glucometer 195H 01/01/18 05:21: Glucometer 148H 01/01/18 06:00: White Blood Count 8.6, Red Blood Count 2.33L, Hemoglobin 7.3L, Hematocrit 23L, Mean Corpuscular Volume 98, Mean Corpuscular Hemoglobin 31, Mean Corpuscular Hemoglobin Concent 32, Red Cell Distribution Width 14.0, Platelet Count 399, Mean Platelet Volume 10.7H, Neutrophils (%) (Auto) 66, Lymphocytes (%) (Auto) 23 , Monocytes (%) (Auto) 8, Eosinophils (%) (Auto) 3, Basophils (%) (Auto) 0, Neutrophils # (Auto) 5.7, Lymphocytes # (Auto) 2.0, Monocytes # (Auto) 0.7, Eosinophils # (Auto) 0.2, Basophils # (Auto) 0.0, Sodium Level 143, Potassium Level 4.7, Chloride Level 114H, Carbon Dioxide Level 20L, Anion Gap 9, Blood Urea Nitrogen 13, Creatinine 1.24, Estimat Glomerular Filtration Rate 42, BUN/ Creatinine Ratio 10, Glucose Level 113H, Calcium Level 9.2 Microbiology 12/30/17 Blood Culture - Preliminary, Resulted No growth Assessment/Plan Assessment/Plan Assessment/Plan Bilateral Pneumonia anemia- patient reports hx of Iron deficiency anemia PAD DM Patient reports gallstones We discussed with patient colonoscopy and EGD outpatient vs inpatient after PNA resovles. Not had bm yet for FOBT No surgical intervention at this time. Will have her follow up outpatient. Will sign off at this time. If any change to where she needs endoscopy inpatient, please call. Clinical Quality Measures DVT/VTE Risk/Contraindication: Risk Factor Score Per Nursin RFS Level Per Nursing on Admit: 2=Moderate CHRISTIANO ROBERTSON DO Jan 01, 2018 09:19
[2018-01-01] MEDS: KETOROLAC 30 MG/ML VIAL IVP PRN ×2 (10:57→20:09)
[2018-01-01 12:00] VITALS: BP 156/63
--- NOTE | 2018-01-01 12:21 | Progress Note-Hospitalist ---
Subjective HPI/CC On Admission Date Seen by Provider: Jan 01, 2018 Time Seen by Provider: 12:16 Pt is a 77yoCF with a PMH of PAD, HTN, DMII who presented to the ER with CC of cough. Her symptoms started last week and she was seen at an Urgent Care and was diagnosed with bronchitis and given Keflex and Azithromycin. She felt worse over the next two days and called the urgent Care who advised her to go to the ER on 12/28. She was diagnosed with pneumonia at that time and offered admission but she wanted to try outpatient management. She continued to have worsening cough and SOB with LAMB and decided to return to the ER for evaluation. She was found to have worsening bilateral pneumonia and was admitted for failing outpatient management. This morning she states she is feeling better but still short of breath with ambulation. Subjective/Events-last exam Pt reports feeling much better today. Cough improving and SOB improved. Focused Exam Lactate Level 12/30/17 11:39: Lactic Acid Level 1.54 Objective Exam Vital Signs Vital Signs Date Time Temp Pulse Resp B/P (MAP) Pulse Ox O2 Delivery O2 Flow Rate FiO2 01/01/18 12:00 97.0 74 16 156/63 (94) 98 Room Air Capillary Refill : Less Than 3 SecondsLess Than 3 Seconds General Appearance: No Apparent Distress, WD/WN Respiratory: No Respiratory Distress, Crackles (bases) Cardiovascular: Regular Rate, Rhythm, No Murmur Gastrointestinal: Normal Bowel Sounds, Non Tender, Soft Extremity: No Calf Tenderness, No Pedal Edema Neurologic/Psychiatric: Alert, Oriented x3 Results/Procedures Lab Laboratory Tests 01/01/18 06:00 Patient resulted labs reviewed. Imaging: Reviewed Imaging Report Assessment/Plan Assessment and Plan Assess & Plan/Chief Complaint CAP Diagnosis/Problems Diagnosis/Problems (1) Pneumonia Status: Acute Assessment & Plan: Failed outpatient treatment Does not meet sepsis criteria Continue Zosyn Sputum culture ordered Blood culture pending Symptoms improving Qualifiers: Pneumonia type: due to unspecified organism Laterality: bilateral Lung location: lower lobe of lung Qualified Codes: J18.1 - Lobar pneumonia, unspecified organism (2) Non-insulin dependent type 2 diabetes mellitus Assessment & Plan: Sliding scale ordered Continue glipizide Will hold metformin Blood sugar elevated on arrival but now improved (3) Essential (primary) hypertension Assessment & Plan: Improving control trend (4) PAD (peripheral artery disease) Assessment & Plan: Will hold ASA and Plavix for now FOBT ordered Consider Surgery consult (5) Normocytic anemia Assessment & Plan: New onset FOBT ordered Surgery consulted, appreciate recs She would prefer to follow up with Dr Martin in regards tothis (6) Hyperkalemia Status: Resolved Assessment & Plan: resolved Clinical Quality Measures DVT/VTE Risk/Contraindication: Risk Factor Score Per Nursin RFS Level Per Nursing on Admit: 2=Moderate DELIO SRIVASTAVA MD Jan 01, 2018 12:21 pm
[2018-01-01 15:33] VITALS: BP 158/67
[2018-01-01 19:20] VITALS: BP 138/65
[2018-01-02] VITALS (8 sets, daily range): BP systolic 131–173; BP diastolic 63–92
[2018-01-02] MEDS: PIPERACILLIN/TAZO 4.5 GM/NS 100 ML IV SCH ×6 (03:07→18:17)
[2018-01-02] MEDS: inSUlin ASPART (NovoLOG) 1 UNIT/0.01 ML (CHARGE PER UNIT) SC SCH ×4 (06:22→20:50)
[2018-01-02] MEDS: LACTOBACILLUS ACIDOPHILUS (PROBIOTIC) CAPSULE PO SCH ×3 (06:23→16:14)
[2018-01-02] MEDS: glipiZIDE 5 MG (GLUCOTROL) TAB PO SCH ×2 (06:23→16:14)
[2018-01-02] MEDS: KETOROLAC 30 MG/ML VIAL IVP PRN ×2 (06:58→16:12)
[2018-01-02] MEDS: RT-ALBUTEROL/IPRATROPIUM 3 ML (DUONEB) VIAL INH SCH ×2 (08:28→19:21)
[2018-01-02] MEDS: OXYBUTYNIN (DITROPAN) 5 MG TAB PO SCH ×2 (08:31→20:50)
--- NOTE | 2018-01-02 11:34 | Progress Note-Hospitalist ---
Subjective HPI/CC On Admission Date Seen by Provider: Jan 02, 2018 Time Seen by Provider: 11:31 Pt is a 77yoCF with a PMH of PAD, HTN, DMII who presented to the ER with CC of cough. Her symptoms started last week and she was seen at an Urgent Care and was diagnosed with bronchitis and given Keflex and Azithromycin. She felt worse over the next two days and called the urgent Care who advised her to go to the ER on 12/28. She was diagnosed with pneumonia at that time and offered admission but she wanted to try outpatient management. She continued to have worsening cough and SOB with LAMB and decided to return to the ER for evaluation. She was found to have worsening bilateral pneumonia and was admitted for failing outpatient management. This morning she states she is feeling better but still short of breath with ambulation. Subjective/Events-last exam Pt reports feeling well but has devleoped diarrhea. She is on probiotics but has had 4 loose watery stools since last night. Otherwise no new complaints. Focused Exam Lactate Level 12/30/17 11:39: Lactic Acid Level 1.54 Objective Exam Vital Signs Vital Signs Date Time Temp Pulse Resp B/P (MAP) Pulse Ox O2 Delivery O2 Flow Rate FiO2 01/02/18 08:54 96.7 73 22 158/70 (99) 97 Room Air 01/02/18 08:20 21 Capillary Refill : Less Than 3 SecondsLess Than 3 Seconds General Appearance: No Apparent Distress, WD/WN Respiratory: Lungs Clear, No Respiratory Distress Cardiovascular: Regular Rate, Rhythm, No Murmur Gastrointestinal: Normal Bowel Sounds, Soft Neurologic/Psychiatric: Alert, Oriented x3, Normal Mood/Affect Results/Procedures Lab Patient resulted labs reviewed. Imaging: Reviewed Imaging Report Assessment/Plan Assessment and Plan Assess & Plan/Chief Complaint CAP Diagnosis/Problems Diagnosis/Problems (1) Pneumonia Status: Acute Assessment & Plan: Failed outpatient treatment Does not meet sepsis criteria Continue Zosyn Sputum culture ordered Blood culture NGTD Symptoms improving Qualifiers: Pneumonia type: due to unspecified organism Laterality: bilateral Lung location: lower lobe of lung Qualified Codes: J18.1 - Lobar pneumonia, unspecified organism (2) Diarrhea Status: Acute Assessment & Plan: Continue probiotic Will check C diff Qualifiers: Diarrhea type: unspecified type Qualified Codes: R19.7 - Diarrhea, unspecified (3) Normocytic anemia Assessment & Plan: New onset FOBT negative Surgery consulted, appreciate recs She would prefer to follow up with Dr Martin in regards tothis (4) Non-insulin dependent type 2 diabetes mellitus Assessment & Plan: Sliding scale ordered Continue glipizide Will hold metformin Blood sugar elevated on arrival but now improved (5) Essential (primary) hypertension Assessment & Plan: Improving control trend (6) PAD (peripheral artery disease) Assessment & Plan: Will resume ASA and Plavix (7) Hyperkalemia Status: Resolved Assessment & Plan: resolved Clinical Quality Measures DVT/VTE Risk/Contraindication: Risk Factor Score Per Nursin RFS Level Per Nursing on Admit: 2=Moderate DELIO SRIVASTAVA MD Jan 02, 2018 11:34 am
[2018-01-03] MEDS: PIPERACILLIN/TAZO 4.5 GM/NS 100 ML IV SCH ×2 (03:04)
[2018-01-03] MEDS: KETOROLAC 30 MG/ML VIAL IVP PRN (03:48)
[2018-01-03 04:10] VITALS: BP 146/58
[2018-01-03] MEDS: inSUlin ASPART (NovoLOG) 1 UNIT/0.01 ML (CHARGE PER UNIT) SC SCH (05:22)
[2018-01-03] MEDS: LACTOBACILLUS ACIDOPHILUS (PROBIOTIC) CAPSULE PO SCH (06:07)
[2018-01-03] MEDS: glipiZIDE 5 MG (GLUCOTROL) TAB PO SCH (06:07)
[2018-01-03 08:00] VITALS: BP 127/75
[2018-01-03] MEDS: OXYBUTYNIN (DITROPAN) 5 MG TAB PO SCH (09:11)
[2018-01-03] MEDS: RT-ALBUTEROL/IPRATROPIUM 3 ML (DUONEB) VIAL INH SCH (09:29)
[2018-01-03] MEDS ORDERED: LACT1CAP7 PO (09:48)
[2018-01-03] MEDS ORDERED: AMOX-358 PO (09:48)
--- NOTE | 2018-01-03 09:53 | Discharge Inst-Simple/Standard ---
Discharge Inst-Standard Discharge Medications New, Converted or Re-Newed RX: Call to Patients Pharmacy Patient Instructions/Follow Up Plan of Care/Instructions/FU: Please continue to take your medications as written even if you feel better. I have sent in a probiotic as well to prevent diarrhea from the antibiotic. These are also available over the counter if you would prefer. Please follow up withyou PCP in 1 week. Activity as Tolerated: Yes Discharge Diet: ADA Diet Return to The Hospital For: Worsening cough, SOB, fever, confusion, or if you feel you are getting worse. DELIO SRIVASTAVA MD Jan 03, 2018 9:53 am
--- NOTE | 2018-01-03 10:01 | Discharge Summary-Hospitalist ---
Diagnosis/Chief Complaint Date of Admission Dec 30, 2017 at 1:29 pm Date of Discharge Discharge Date: Jan 03, 2018 Admission Diagnosis Pneumonia Discharge Diagnosis (1) Pneumonia Status: Acute Assessment & Plan: Failed outpatient treatment Does not meet sepsis criteria received Zosyn Sputum culture ordered Blood culture NGTD (2) Diarrhea Status: Acute Assessment & Plan: Continue probiotic Resolved- had formed stool (3) Normocytic anemia Assessment & Plan: New onset FOBT negative Surgery consulted, appreciate recs She would prefer to follow up with Dr Martin in regards tothis (4) Non-insulin dependent type 2 diabetes mellitus Assessment & Plan: Sliding scale ordered Continue glipizide Will hold metformin Blood sugar elevated on arrival but now improved (5) Essential (primary) hypertension Assessment & Plan: Improving control trend (6) PAD (peripheral artery disease) Assessment & Plan: Will resume ASA and Plavix (7) Hyperkalemia Status: Resolved Assessment & Plan: resolved Discharge Summary Procedures/Consulations Dr Love- Surgery Discharge Physical Exam Allergies: Coded Allergies: Fkdatrn-Wdy-Bph Reductase Inhibitor (Verified Allergy, Intermediate, 01/01) ezetimibe (Verified Allergy, Intermediate, vaginal bleeding, rash, ) Sulfa (Sulfonamide Antibiotics) (Unverified Allergy, Unknown, FEET AND ANKLE SWELLING, 09/13/14) levofloxacin (Verified Allergy, Unknown, 12/31/17) linagliptin (Unverified Allergy, Unknown, RASH, 09/13/14) nitrofurantoin (Verified Allergy, Unknown, 12/31/17) saxagliptin (Unverified Allergy, Unknown, FEET AND ANKLE SWELLED, 09/13/14) tramadol (Verified Adverse Reaction, Intermediate, 12/31/17) pt states she gets severe nausea. Vitals & I&Os Vital Signs Date Time Temp Pulse Resp B/P (MAP) Pulse Ox O2 Delivery O2 Flow Rate FiO2 01/03/18 08:37 Room Air 01/03/18 08:00 97.9 76 20 127/75 (92) 95 01/02/18 08:20 21 General Appearance: No Apparent Distress, WD/WN Neurologic/Psychiatric: Alert, Oriented x3, Normal Mood/Affect Hospital Course Pt was admitted for CAp after failing outpatient antibiotics. She did not meet sepsis criteria. She was started on Zosyn and had an uneventful course where she recovered well. Of note she was found to be newly anemic. Surgery was consulted for evaluation and FOBT was negative during this stay. She stated she will follow up with Dr Martin in regards to her anemia. On day of discharge she felt well and was comfortable with plan to DC home. She was discharged home in stable condition to follow up with Dr Martin in 1 week. Labs (last 24 hrs) Laboratory Tests 01/02/18 11:12: Glucometer 271H 01/02/18 16:03: Glucometer 246H 01/02/18 20:33: Glucometer 178H 01/03/18 05:04: Glucometer 94 Microbiology 12/30/17 Blood Culture - Preliminary, Resulted No growth Patient resulted labs reviewed. Pending Labs Laboratory Tests 01/03/18 05:04: Glucometer 94 Imaging: Reviewed Imaging Report Discussion & Recommendations Discharge Planning: >30 minutes discharge planning Discharge Home Medications: Active Scripts Active Augmentin 875-125 Tablet (Amoxicillin/Potassium Clav) 1 Each Tablet 1 Each PO BID Acidophilus-Pectin Capsule (Lactobacillus Acidophilus/Pect) 1 Each Capsule 2 Each PO TIDWM Reported Vitamin B-6 (Pyridoxine HCl) 100 Mg Tablet 100 Mg PO DAILY Vitamin B-12 (Cyanocobalamin (Vitamin B-12)) 1,000 Mcg Tab.subl 1,000 Mcg SL DAILY Krill Oil 1,000 mg Softgel (Krill/Om-3/Dha/Epa/Phospho/Ast) 1 Each Capsule 1 Cap PO DAILY Aspirin EC (Aspirin) 81 Mg Tablet.dr 81 Mg PO DAILY Calcium 500 + Vit D 200 Caplet (Calcium Carbonate/Vitamin D3) 1 Each Tablet 1 Tab PO DAILY Oxybutynin Chloride ER (Oxybutynin Chloride) 10 Mg Tab.er.24 10 Mg PO DAILY Clopidogrel (Clopidogrel Bisulfate) 75 Mg Tablet 75 Mg PO DAILY Glipizide 10 Mg Tablet 10 Mg PO BID Metformin HCl 500 Mg Tablet 500 Mg PO BID WITH MEALS Folic Acid 0.8 Mg Tablet 0.8 Mg PO DAILY Multivitamins (Multivitamin) 1 Each Tablet 1 Tab PO DAILY Cephalexin 500 Mg Capsule 500 Mg PO TID 7 Days 7 DAY THERAPY FILLED 12-25-17 Instructions to patient/family Please see electronic discharge instructions given to patient. Clinical Quality Measures DVT/VTE Risk/Contraindication: Risk Factor Score Per Nursin RFS Level Per Nursing on Admit: 2=Moderate Copy Copies To 1: Dr George Martin Problem Qualifiers (1) Pneumonia: Pneumonia type: due to unspecified organism Laterality: bilateral Lung location: lower lobe of lung Qualified Codes: J18.1 - Lobar pneumonia, unspecified organism (2) Diarrhea: Diarrhea type: unspecified type Qualified Codes: R19.7 - Diarrhea, unspecified DELIO SRIVASTAVA MD Jan 03, 2018 10:01 am
== END 2018-01-03 11:05 | disposition home or self-care (01) | DRG 195 ==
LOC: EDUNIT# 09:56 → ER 09:57 → 4TH 13:29
PROVIDERS: ADMIT Family Medicine; ATTEND Family Medicine
DX: J18.9 Pneumonia, unspecified organism (principal); D64.9 Anemia, unspecified; R19.7 Diarrhea, unspecified; E87.5 Hyperkalemia; E11.65 Type 2 diabetes mellitus with hyperglycemia; I10 Essential (primary) hypertension; I73.9 Peripheral vascular disease, unspecified; F32.9 Major depressive disorder, single episode, unspecified; F17.290 Nicotine dependence, other tobacco product, uncomplicated; Z95.5 Presence of coronary angioplasty implant and graft; Z79.82 Long term (current) use of aspirin; Z79.84 Long term (current) use of oral hypoglycemic drugs; Z95.820 Peripheral vascular angioplasty status with implants and grafts
CPT/HCPCS: 36415; 70450; 71046; 80048; 80053; 81000; 82274; 82962; 83605; 83880; 85025; 87040; 94640; 94760; 96361; 96365; 96375

== ENCOUNTER → 2018-06-18 | Outpatient (CLI) | payer MEDICARE, BC ==
[~2018-06-18] MED LIST changes: +AMOX-358 PO; +ASPI-983 PO; +CALC-676 PO; +CLOP75TA28 PO; +CYAN100015 SL; +KRIL1CAP18 PO; +LACT1CAP7 PO; +METF-397 PO; +MULT1TAB69 PO; +OMEG-77 PO; +PYRI100T2 PO
--- NOTE | 2018-06-18 11:29 | Diagnostic Imaging Report ---
PROCEDURE: CT chest without contrast. TECHNIQUE: Multiple contiguous axial images were obtained through the chest without the use of intravenous contrast. Auto Exposure Controls were utilized during the CT exam to meet ALARA standards for radiation dose reduction. INDICATION: History of shortness of air, productive cough and COPD. COMPARISON: 05/20/2017 FINDINGS: Evaluation of the mediastinal structures limited given lack of intravenous contrast. Visualized portion of thyroid gland appearing unremarkable. No suggestion of pathologically enlarged mediastinal lymph nodes. Heart size within normal limits. There is least moderate severity coronary artery calcification. The cardiac valvular calcification at the level of the mitral valve. No significant pericardial effusion. The thoracic aortic contour unremarkable with mild to moderate scattered wall calcification. Emphysematous change about the lung parenchyma. No consolidating infiltrate. Likely biapical pleural-parenchymal scarring. Faint, 45 mm nodule anterior right upper lobe adjacent tip of the peripheral vessel is present, stable. Probable nonobstructing right renal stone superior pole. Thoracic spine stimulator is present, tip at the T8 level. IMPRESSION: 1. Generally stable chest demonstrates no acute abnormality. Unchanged biapical pleural-parenchymal thickening as well as small right upper lobe pulmonary nodule. Dictated by: Dictated on workstation # [id number]
== END ==
LOC: RAD 10:05
PROVIDERS: ATTEND Family Medicine Geriatric Medicine
DX: J44.9 Chronic obstructive pulmonary disease, unspecified (principal); R91.1 Solitary pulmonary nodule
CPT/HCPCS: 71250

== ENCOUNTER → 2019-09-08 | Outpatient (CLI) | payer MEDICARE, BC ==
[~2019-09-08] MED LIST changes: -AZIT500T5 PO; +AZIT500T9 PO; -MECL-106 PO; +MECL-149 PO; +OXYB10TA29 PO; +PYRI100T10 PO; -PYRI100T2 PO
== END ==
LOC: CARD 14:45
PROVIDERS: ATTEND Nurse Practitioner Family
DX: R01.1 Cardiac murmur, unspecified (principal); I08.0 Rheumatic disorders of both mitral and aortic valves
CPT/HCPCS: 93306

== ENCOUNTER → 2020-02-10 | Outpatient (CLI) | payer MEDICARE, BC ==
[~2020-02-10] MED LIST changes: +ASPI-1238 PO; -ASPI-983 PO; +CATHETER FLUSH 10 ML SYR IV PRN; +HOLD METFORMIN - RECEIVED CONTRAST 20 ML VIAL IV SCH; +IOHEXOL 350 MG/ML 100 ML (OMNIPAQUE 350) VIAL IV ONE; +MULT-567 PO; -MULT1TAB69 PO; +NS 100 ML (IVPB) BAG IV ONE
--- NOTE | 2020-02-10 09:43 | Diagnostic Imaging Report ---
PROCEDURE: CT abdomen and pelvis with contrast. TECHNIQUE: Multiple contiguous axial images were obtained through the abdomen and pelvis after administration of intravenous contrast. Auto Exposure Controls were utilized during the CT exam to meet ALARA standards for radiation dose reduction. All CT scans use one or more of the following dose optimizing techniques: automated exposure control, MA and/or KvP adjustment based on patient size and exam type or iterative reconstruction. INDICATION: Abdominal pain. COMPARISON: Comparison is made with prior CT from 04/10/2015. FINDINGS: The lung bases are clear. There appears to be some mild generalized low density throughout the liver, consistent with hepatic steatosis. No discrete liver mass is detected. Gallbladder contains stones. No biliary ductal dilatation is seen. Pancreas and spleen are unremarkable. No adrenal mass is detected. A low-density lesion in the lower pole of the right kidney is approximately 2 cm in size, similar to CT from 2016. There is a probable nonobstructing calculus in the lower pole of the left kidney measuring 3 to 4 mm. There is no hydronephrosis. Aorta is nonaneurysmal. No definite central retroperitoneal or mesenteric lymphadenopathy is seen. Bowel loops appear to be nonobstructed. There is diverticulosis of the descending and sigmoid colon. There are mild inflammatory changes surrounding the descending colon near the junction with the sigmoid. This likely indicates some mild underlying acute diverticulitis. No abscess formation or bowel obstruction is seen. Bladder is unremarkable. Uterus appears to be surgically absent. IMPRESSION: 1. Hepatic steatosis. 2. Cholelithiasis. 3. Findings suggestive of mild acute diverticulitis near the junction of the descending colon and sigmoid. 4. No other significant abnormality is detected. Dictated by: Dictated on workstation # [id number]
== END ==
LOC: RAD 08:45
PROVIDERS: ATTEND Internal Medicine
DX: K76.0 Fatty (change of) liver, not elsewhere classified (principal); K80.20 Calculus of gallbladder without cholecystitis without obstruction
CPT/HCPCS: 74177